=== PATIENT | male | born 1950 | race Caucasian/White ===

== ENCOUNTER 2016-12-12 14:09 | Outpatient (CLI) | payer OTHER ==
--- NOTE | 2016-12-12 18:44 | ULT ---
HEPATIC DOPPLER ULTRASOUND: 12/12/16 COMPARISON: None. HISTORY: Elevated liver function tests. TECHNIQUE: Multiplanar francisco scale sonographic imaging of the right upper quadrant obtained. Hepatic vasculature is assessed with color flow/spectral analysis. FINDINGS: The pancreas is obscured by bowel gas. Evaluation of the left lobe of the liver is markedly limited secondary to bowel gas as well. Limited assessment of the right lobe of the liver is unremarkable. Right kidney measures 9.8 cm in craniocaudal dimension and demonstrates no stone, hydronephrosis or mass. Small echogenic foci are seen within the gallbladder lumen suggesting small gallstones. The sonograp her reports a negative White's sign. No gallbladder wall thickening or pericholecystic fluid is see n. The common bile duct measures 4 mm, within normal limits. Imaged abdominal aorta and IVC appear within normal limits. Main portal vein and right portal vein a ppear patent and demonstrate appropriate flow direction. Hepatic artery is patent as is the abdomina l aorta and IVC in the perihepatic region. The right hepatic vein is patent and demonstrates a normal waveform. The spleen measures 13.3 cm, upper limits of normal in size. Hepatic artery and vein are patent and demonstrate appropriate waveforms. The vasculature within the left lobe of the liver could not be ad equately assessed secondary to bowel gas. IMPRESSION: 1. Interrogated hepatic and splenic vasculature unremarkable. The left hepatic lobe and associa leroy vasculature cannot be imaged secondary to bowel gas. 2. No evidence for biliary dilatation. 3. Cholelithiasis. POS: [facility]
== END 2016-12-12 14:10 | disposition home or self-care (01) ==
LOC: ULT 14:09
PROVIDERS: ATTEND Family Medicine
DX: R94.5 Abnormal results of liver function studies (principal); K80.20 Calculus of gallbladder without cholecystitis without obstruction
CPT/HCPCS: 76705

== ENCOUNTER 2019-03-08 12:53 | Emergency (ER) | payer OTHER ==
[2019-03-08 14:12] LABS: #Eosinphils 0.1 thou/uL (0.0-0.7); #Lymphocytes 1.7 thou/uL (1.20-3.40); #Monocytes 0.6 thou/uL (0.11-0.59); #Neutrophils 2.9 thou/uL (1.40-6.50); %Basophils 0.5 % (0.0-1.0); %Eosinophils 2.6 % (0.0-10.0); %Lymphocytes 30.8 % (21.0-51.0); %Neutrophils 54.1 % (42.0-75.0); Hemoglobin 14.3 g/dL (14.0-18.0); Mean Corpuscular HGB CONC 33.7 g/dL (32.0-36.0); Mean Corpuscular Hemoglobin 32.5 pg (27.0-31.0); Mean Corpuscular Volume 96.6 fL (78.0-98.0); Mean Platelet Volume 8.2 fL (7.4-10.4); Platelet Count 78 thou/uL (130-400); RBC Distribution Width 12.2 % (11.5-14.5); White Blood Cell (WBC) Count 5.4 thou/uL (4.8-10.8)
--- NOTE | 2019-03-08 14:34 | RAD ---
EXAM: XR Chest 1 View Portable PROVIDED CLINICAL HISTORY: Cough COMPARISON: 09/21/2015 FINDINGS: The lungs are hypoinflated, limiting evaluation. Cardiac silhouette appears enlarged, which may be le ast partially on the basis of portable technique and lung hypoinflation. Bibasilar patchy parenchymal opacities are redemonstrated, nonspecific but presumably reflecting passive atelectasis g iven lung hypoinflation. There is no evidence for pneumothorax. Blunting of left costophrenic angle could reflect left pleural fluid. IMPRESSION: Hypoinflated exam.
[2019-03-08 14:38] LABS: Bilirubin Negative (Negative); Blood, Urine Negative (Negative); Clarity Clear (Clear); Glucose, Urine (Dipstick) Normal (Negative); Leukocyte Negative Leu/uL (Negative); Nitrite Negative (Negative); Protein, Urine (Dipstick) Negative (Neg-Trace); Urobilinogen Normal mg/dL (Less than 2)
[2019-03-08 14:39] LABS: ALT (SGPT) 21 U/L (8-55); AST (SGOT) 30 U/L (5-34); Albumin 3.7 g/dL (3.4-4.8); Alkaline Phosphatase 132 U/L (40-110); Anion Gap 11 mmol/L (10-20); BUN (Urea Nitrogen) 15 mg/dL (8.4-25.7); Bilirubin, Total 0.7 mg/dL (0.2-1.2); CK (CPK) 158 U/L (30-200); Calc. Creatinine Clearance 0 mL/min (70-130); Calcium 9.6 mg/dL (7.8-10.44); Carbon Dioxide 35 mmol/L (23-31); Chloride 98 mmol/L (98-107); Estimated GFR-MDRD 84; Globulin 2.9 g/dL (2.4-3.5); Glucose 159 mg/dL (80-115); Lipase 20 U/L (8-78); Potassium 4.4 mmol/L (3.5-5.1); Protein, Total 6.6 g/dL (5.8-8.1); Sodium 140 mmol/L (136-145)
== END 2019-03-08 15:24 | disposition home or self-care (01) ==
LOC: ERS 12:53
DX: E86.0 Dehydration (principal); R53.1 Weakness; E78.5 Hyperlipidemia, unspecified; J44.9 Chronic obstructive pulmonary disease, unspecified; I48.92 Unspecified atrial flutter; F32.9 Major depressive disorder, single episode, unspecified; Z79.899 Other long term (current) drug therapy
CPT/HCPCS: 36415; 71045; 80053; 81003; 82550; 83605; 83690; 83880; 84484; 85025; 87040; 87804; 93005; 96360

== ENCOUNTER 2019-03-18 09:34 | Inpatient (IN) | payer OTHER ==
--- NOTE | 2019-03-18 10:21 | RAD ---
Portable chest: HISTORY: Shortness of breath COMPARISON: 03/08/2019 FINDINGS:Cardiomegaly. Mild vascular engorgement. Bibasilar infiltrates and atelectasis with evidence of small bilateral effusions. No significant change from prior exam. IMPRESSION:Bibasilar infiltrates and atelectasis with evidence of small effusions. Not significantly changed.
[2019-03-18 10:25] LABS: #Eosinphils 0.1 thou/uL (0.0-0.7); #Lymphocytes 1.7 thou/uL (1.20-3.40); #Monocytes 0.7 thou/uL (0.11-0.59); #Neutrophils 3.9 thou/uL (1.40-6.50); %Basophils 0.4 % (0.0-1.0); %Eosinophils 1.5 % (0.0-10.0); %Lymphocytes 26.7 % (21.0-51.0); %Monocytes 10.4 % (0.0-10.0); Hemoglobin 14.7 g/dL (14.0-18.0); Mean Corpuscular HGB CONC 31.8 g/dL (32.0-36.0); Mean Corpuscular Volume 97.3 fL (78.0-98.0); Platelet Count 92 thou/uL (130-400); RBC Distribution Width 12.7 % (11.5-14.5); Red Blood Cell (RBC) Count 4.75 mill/uL (4.70-6.10); White Blood Cell (WBC) Count 6.3 thou/uL (4.8-10.8)
[2019-03-18 10:42] LABS: ALT (SGPT) 23 U/L (8-55); AST (SGOT) 31 U/L (5-34); Alkaline Phosphatase 138 U/L (40-110); Anion Gap 8 mmol/L (10-20); BUN (Urea Nitrogen) 12 mg/dL (8.4-25.7); Bilirubin, Total 0.9 mg/dL (0.2-1.2); Calc. Creatinine Clearance 0 mL/min (70-130); Carbon Dioxide 37 mmol/L (23-31); Chloride 95 mmol/L (98-107); Estimated GFR-MDRD Greater than 90; Globulin 3.1 g/dL (2.4-3.5); Glucose 153 mg/dL (80-115); Potassium 4.4 mmol/L (3.5-5.1); Protein, Total 7.1 g/dL (5.8-8.1); Sodium 136 mmol/L (136-145)
[2019-03-18 13:47] LABS: Bilirubin Negative (Negative); Blood, Urine Negative (Negative); Clarity Clear (Clear); Glucose, Urine (Dipstick) Normal (Negative); Leukocyte Negative Leu/uL (Negative); Nitrite Negative (Negative); Protein, Urine (Dipstick) Negative (Neg-Trace); Urobilinogen Normal mg/dL (Less than 2)
[2019-03-18] MEDS ORDERED: Sodium Chloride 0.9% 100 ML ONE (14:49)
[2019-03-18] MEDS ORDERED: Azithromycin 500 MG VIAL ONE (14:49)
[2019-03-18] MEDS ORDERED: cefTRIAXone\\ROCEPHIN 2 GM VIAL ONE (14:49)
--- NOTE | 2019-03-18 20:28 | CT ---
CT OF BRAIN PERFORMED WITHOUT CONTRAST ENHANCEMENT: 03/18/19 HISTORY: Fall with head trauma. Ventricular and cisternal system shows fairly age appropriate change. There is no signs of intracereb ral hemorrhage or extra-axial fluid collections. Mastoid air cells and visualized sinuses are clear. IMPRESSION: No acute intracranial abnormalities. POS: [facility]
--- NOTE | 2019-03-18 20:47 | CT ---
CT OF THE CERVICAL SPINE PERFORMED WITHOUT CONTRAST ENHANCEMENT: 03/18/19 HISTORY: Fall with neck injury. Bones appear somewhat demineralized. The vertebral bodies maintain normal height. There is marked dis c narrowing at C5-6. There is prominent anterior osteophytic change at C4-5 and C6-7. The facets are in normal alignment. There is no evidence of canal stenosis. No significant foraminal narrowing. No C T evidence for fracture. Partially visualized parenchymal change in the right upper lobe may be related to scarring. An infilt rative process is not excluded. IMPRESSION: No CT evidence of fracture of the cervical spine. POS: [facility]
--- NOTE | 2019-03-18 21:04 | RAD ---
PORTABLE CHEST: 03/18/19 HISTORY: Drop in O2. COMPARISON: Earlier exam done today. Heart size appears slightly enlarged. There is worsening atelectatic changes in the right lung base. Atelectatic changes in the left base also might be slightly increased. IMPRESSION: Slightly worsening bibasilar atelectatic lung change. POS: [facility]
[2019-03-18] MEDS ORDERED: Rocuronium Bromide 10 MG/ML (10ML VIAL) ONE (23:58)
[2019-03-19] MEDS ORDERED: fentaNYL Citrate/PF 2,000 MCG in Sodium Chloride 0.9% 60 ML IV SCH (00:17)
[2019-03-19 00:55] LABS: Actual Bicarbonate (HCO3a) 29.4 mEq/L (22-28); Analyzer IN Cardio ER; Base Excess (BEa) 3.8 mEq/L (-2.0 to +3.0); CO2 Tension 48.3 mmHg (35.0-45.0); Calcium, Ionized 1.15 mmol/L (1.12-1.30); Carboxyhemoglobin (COHb) 1.2 gm% (0.0-3.0); Hemoglobin (Hb) 13.4 g/dL (14.0-18.0); O2 Tension (PaO2) 62.5 mmHg (> 80.0); Potassium - ABG Lab 3.83 mmol/L (3.70-5.30)
[2019-03-19] MEDS ORDERED: Senokot S 8.6-50 MG TAB PO PRN (00:57)
[2019-03-19] MEDS ORDERED: Acetaminophen 325 MG TAB PO PRN (00:57)
[2019-03-19] MEDS ORDERED: HYDROcodone/Acetaminophen 5/325 mg Tablet PO PRN (00:57)
[2019-03-19] MEDS ORDERED: Bisacodyl 10 MG SUPP PR PRN (00:57)
[2019-03-19] MEDS ORDERED: Acetaminophen 650 MG Suppository PR PRN (00:57)
[2019-03-19] MEDS ORDERED: Bisacodyl 5 MG TAB PO PRN (00:57)
--- NOTE | 2019-03-19 01:06 | PDOC.HHP ---
Hospitalist HPI - History of Present Illness Hypoxic respiratory failure History of Present Illness: Patient is a 68 year old male with PMH COPD, atrial flutter, DM who presents to ED for intermittent hypoxia x 1 week, lives at [facility], they report intermittent hypoxia x 1 week, on arrival here sats in the 70s then 90%, patient was observed in ED and [facility], however patient fell in ED room, per nusing hit head w/ scalp laceration and patient was instead paged for admission here, CT head and CT C spine performed after fall without acute findings however patient began to desaturate and placed on non-rebreather, nursing reports hypoxia and then respiratory failure and was instead intubated in the ED. CXR bibasilar infiltrates/atalectasts w/ small effusions per prelim radiology read in ED notes. He was given azithromycin and ceftriaxone. ED Course: VITAL SIGNS SunMar 18, 2019 09:36 PABLITO Fofana Kassidy BP: 148/73 Pulse: 71 Resp: 22 Temp: 97.4 (Oral) Pain: 0 O2 sat: 88 on (Room Air) Time: 03/18/2019 09:36. folic acid oral SunMar 18, 2019 11:38 PABLITO Fofana Kassidy TABLET : Strength - 1 mg : ORAL Patient Dose: 1 mg Oral once a day. cyanocobalamin (vit B-12) oral SunMar 18, 2019 11:38 PABLITO Fofana Kassidy TABLET : Strength - 1,000 mcg : ORAL Patient Dose: 1000 mcg Oral once a day. metFORMIN SunMar 18, 2019 11:39 PABLITO Fofana Kassidy tablet : Strength - 500 mg : ORAL Patient Dose: 750 mg 2 times a day. simvastatin SunMar 18, 2019 11:39 PABLITO Fofana Kassidy tablet : Strength - 80 mg : ORAL Patient Dose: once a day (at bedtime). Miralax SunMar 18, 2019 11:40 PABLITO Fofana Kassidy powder in packet : Strength - 17 gram : ORAL Patient Dose: once a day. Hospitalist ROS - Review of Systems ROS unobtainable: due to endotracheal tube Hospitalist History - Past Medical History Other Medical History: Past medical history includes cardiac history, Past medical history includes history of hyperlipidemia, currently being treated, chronic obstructive pulmonary disease, Atrial Flutter, diabetes. - Exam General - other findings: intubated Eye - other findings: fixed 2-3mm pupils, sedated ENT - other findings: bruises over front of face Neck: supple, no JVD Heart: RRR, no murmur, no gallops, no rubs Respiratory: CTAB, no wheezes, no rales, no ronchi Gastrointestinal: soft, non-tender, non-distended, normal bowel sounds, no palpable masses, no hepatomegaly, no splenomegaly, no bruit Extremities: no cyanosis, no clubbing, no edema Extremities - other findings: R foot w/ TMA. well healed. multiple skin graft wounds on both legs no infx Skin - other findings: as above Neurological - other findings: intubated and sedated, pupils small and fixed Musculoskeletal: normal tone, normal strength, no muscle wasting Hospitalist Results - Labs Result Diagrams: 03/18/19 10:07 03/18/19 10:07 Lab results: WBC 6.3 thou/uL (4.8-10.8) 03/18/19 10:07 Hgb 14.7 g/dL (14.0-18.0) 03/18/19 10:07 Hct 46.2 % (42.0-52.0) 03/18/19 10:07 MCV 97.3 fL (78.0-98.0) 03/18/19 10:07 Plt Count 92 thou/uL (130-400) L 03/18/19 10:07 Neutrophils % 61.0 % (42.0-75.0) 03/18/19 10:07 Sodium 136 mmol/L (136-145) 03/18/19 10:07 Potassium 4.4 mmol/L (3.5-5.1) 03/18/19 10:07 Chloride 95 mmol/L (98-107) L 03/18/19 10:07 Carbon Dioxide 37 mmol/L (23-31) H 03/18/19 10:07 BUN 12 mg/dL (8.4-25.7) 03/18/19 10:07 Creatinine 0.82 mg/dL (0.7-1.3) 03/18/19 10:07 Glucose 153 mg/dL (80-115) H 03/18/19 10:07 Lactic Acid 1.2 mmol/L (0.5-2.2) 03/18/19 10:07 Calcium 10.0 mg/dL (7.8-10.44) 03/18/19 10:07 Total Bilirubin 0.9 mg/dL (0.2-1.2) 03/18/19 10:07 AST 31 U/L (5-34) 03/18/19 10:07 ALT 23 U/L (8-55) 03/18/19 10:07 Alkaline Phosphatase 138 U/L (40-110) H 03/18/19 10:07 Troponin I 0.016 ng/mL (< 0.028) 03/18/19 10:07 B-Natriuretic Peptide 29.0 pg/mL (0-100) 03/18/19 10:07 Serum Total Protein 7.1 g/dL (5.8-8.1) 03/18/19 10:07 Albumin 4.0 g/dL (3.4-4.8) 03/18/19 10:07 Urine Ketones Negative mg/dL (Negative) 03/18/19 10:38 Urine Blood Negative (Negative) 03/18/19 10:38 Urine Nitrite Negative (Negative) 03/18/19 10:38 Ur Leukocyte Esterase Negative Curry/uL (Negative) 03/18/19 10:38 Additional comment: prelim XR read reviewed in ED note w/ infiltrate bilateral, effusion, atalectasis CT head and C spine reports reviewed - EKG Interpretation EKG: sinus rate [address] changes QRS 118, wide. Hospitalist H&P A/P - Plan Plan: Patient is a 68 year old male with PMH COPD, atrial flutter, DM who presents to ED for intermittent hypoxia x 1 week with infiltrates and effusion/atalectasis on lung imaging who developed hypoxic respiratory failure. # acute hypoxic respiratory failure - given off and on symptoms over the week must suspect clot and PE migration, will order a CT of the chest and empirically treat with vancomycin and zosyn, Dr Conrad of pulmonology paged, patient to go to ICU # fall, head trauma - nursing reported fixed pupils bilaterally before intubation and sedation, CT head and C spine OK, will repeat now to survey for developing bleeding, MRI and carotid US ordered # abnormal CXR - infiltrate, effusion, atalectasis concerning for pneumonia, continue vancomycin and zosyn # DM - SSI ordered 55 minutes critical care time
[2019-03-19 01:10] LABS: ALV-art Gradient 233.625 (0-20); Puncture Site LRA
[2019-03-19] MEDS ORDERED: Dextrose 50% Abboject 50 ML SYRINGE SLOW IVP PRN (01:37)
[2019-03-19] MEDS ORDERED: Dextrose 5% in Water 1,000 ML IV PRN (01:37)
[2019-03-19] MEDS ORDERED: hydrALAZINE 20 MG/ML VIAL SLOW IVP PRN (01:39)
[2019-03-19] MEDS ORDERED: Promethazine HCl 12.5 MG in Sodium Chloride 0.9% 50 ML IVPB PRN (01:39)
[2019-03-19] MEDS ORDERED: Ondansetron PF 4 MG/2 ML Vial IVP PRN (01:39)
[2019-03-19] MEDS ORDERED: Fentanyl BOLUS 250 ML IVPB PRN (02:19)
[2019-03-19] MEDS ORDERED: Propofol BOLUS 1,000 MG/100 ML VIAL IV PRN (02:19)
[2019-03-19] MEDS ORDERED: DISCONTINUE PREVIOUS NARCOTIC PAIN MEDICATIONS AND BENZODIAZEPINES FS SCH (02:19)
[2019-03-19] MEDS: Propofol 1,000 MG/100 ML VIAL IV PRN ×4 (02:50→22:16)
[2019-03-19] MEDS: Lorazepam 2 MG/ML VIAL SLOW IVP PRN (02:59)
[2019-03-19] MEDS: Piperacillin/Tazobactam 3.375 GM in Sodium Chloride 0.9% 100 ML IVPB SCH ×4 (03:03→20:36)
[2019-03-19 03:51] LABS: #Eosinphils 0.1 thou/uL (0.0-0.7); #Lymphocytes 1.1 thou/uL (1.20-3.40); #Monocytes 0.8 thou/uL (0.11-0.59); #Neutrophils 5.3 thou/uL (1.40-6.50); %Basophils 0.5 % (0.0-1.0); %Eosinophils 0.7 % (0.0-10.0); %Lymphocytes 15.4 % (21.0-51.0); %Monocytes 10.7 % (0.0-10.0); %Neutrophils 72.7 % (42.0-75.0); Hemoglobin 14.5 g/dL (14.0-18.0); Mean Corpuscular HGB CONC 31.9 g/dL (32.0-36.0); Mean Corpuscular Hemoglobin 30.6 pg (27.0-31.0); Mean Corpuscular Volume 95.9 fL (78.0-98.0); Mean Platelet Volume 8.2 fL (7.4-10.4); Platelet Count 79 thou/uL (130-400); RBC Distribution Width 12.5 % (11.5-14.5); Red Blood Cell (RBC) Count 4.76 mill/uL (4.70-6.10); White Blood Cell (WBC) Count 7.3 thou/uL (4.8-10.8)
[2019-03-19 03:53] LABS: Prothrombin Time 12.7 SEC (12.0-14.7)
[2019-03-19 04:11] LABS: Anion Gap 15 mmol/L (10-20); BUN (Urea Nitrogen) 10 mg/dL (8.4-25.7); Calc. Creatinine Clearance 133 mL/min (70-130); Calcium 9.3 mg/dL (7.8-10.44); Carbon Dioxide 30 mmol/L (23-31); Chloride 98 mmol/L (98-107); Estimated GFR-MDRD Greater than 90; Glucose 158 mg/dL (80-115); Magnesium 1.9 mg/dL (1.6-2.6); Potassium 3.9 mmol/L (3.5-5.1); Sodium 139 mmol/L (136-145)
[2019-03-19] MEDS: methylPREDNISolone Sod Succ/PF 125 MG/2 ML VIAL IVP SCH ×3 (05:38→22:15)
[2019-03-19 07:38] LABS: Actual Bicarbonate (HCO3a) 31.8 mEq/L (22-28); Base Excess (BEa) 8.4 mEq/L (-2.0 to +3.0); CO2 Tension 39.4 mmHg (35.0-45.0); Calcium, Ionized 1.15 mmol/L (1.12-1.30); Carboxyhemoglobin (COHb) 1.5 gm% (0.0-3.0); Hemoglobin (Hb) 13.1 g/dL (14.0-18.0); Potassium - ABG Lab 3.77 mmol/L (3.70-5.30); pH, Arterial 7.53 (7.35-7.45)
--- NOTE | 2019-03-19 08:03 | RAD ---
EXAM: Single view of the chest HISTORY: Endotracheal tube adjustment. Respiratory failure. COMPARISON: 03/19/2019 FINDINGS: Single view of the chest shows a normal sized cardiomediastinal silhouette. The endotrache al tube has been slightly retracted with its tip in good position between the clavicles. An NG tube is seen in the stomach. Opacity seen in the right thorax which likely represents a pleural effusion and adjacent atelectasis. The bones are unremarkable. IMPRESSION: 1. Appropriate position of lines and tubes demonstrates. 2. Right pleural effusion with adjacent atelectasis
[2019-03-19 08:19] LABS: O2 Tension (PaO2) 42.3 mmHg (> 80.0)
[2019-03-19 08:20] LABS: Puncture Site LRA
[2019-03-19] MEDS ORDERED: Enoxaparin Sodium 40 MG/0.4 ML SYRINGE SC SCH (09:00)
--- NOTE | 2019-03-19 09:05 | CT ---
PRELIMINARY REPORT/[facility]/EMERGENCY AFTER HOURS PROCEDURE: Receipt of this report by the clinical staff was confirmed with VINH CHINO MD by Emilee Sharp se on Mar 19, 2019 02:04:00 GENERAL SUPERVISOR. Addendum electronically signed by Kristyn Sharp on March 19, 2019 2:04:51 AM GENERAL SUPERVISOR EXAM: CTA Chest with Intravenous Contrast CLINICAL HISTORY: ER 7.. acute hypoxic resp failure; M68 presents to ED VIA EMS with c/o SOB. Nurshing home concerned f or cough and SOBx1 week. EMS arriveed pt was 90% on 2l of oxygen TECHNIQUE: Axial CTA images of the chest with intravenous contrast. MIP reconstructed images were created and re viewed. CONTRAST: With; ISOVUE 370, 75ml COMPARISON: None provided. FINDINGS: PULMONARY ARTERIES There is no intraluminal filling defect suspicious for PE. AORTA No thoracic aortic aneurysm or dissection. LUNGS Bilateral lower lobe mixed consolidation with atelectasis. Right upper lobe and right middle lobe pat lawrence consolidation. No pulmonary mass. PLEURAL SPACES No pleural effusion. No pneumothorax. HEART AND MEDIASTINUM Enlarged heart. Atherosclerotic coronary calcifications. No pericardial effusion. LYMPH NODES No lymphadenopathy. BONES Multilevel degenerative changes of the spine. No acute fractures or worrisome osseous lesions. CHEST WALL AND UPPER ABDOMEN Endotracheal tube terminating 2.2 cm from the rebecca. Transesophageal enteric tube is seen within the stomach. Radiopaque stones within the gallbladder. IMPRESSION: 1. No evidence of pulmonary embolism. 2. Right greater than left consolidations concerning for multifocal pneumonia with superimposed atele ctasis at the lung bases. 3. Cardiomegaly with coronary artery disease. 4. Appropriate positioning of endotracheal tube and enteric tube. 5. Cholelithiasis. ELECTRONICALLY SIGNED BY: Ben Gonzalez M.D. Mar 19, 2019 2:00:18 AM GENERAL SUPERVISOR This report is intended for review by the ordering physician only, in accordance of law. If you recei ve this report in error, please call [facility] at [phone]. FINAL REPORT EMERGENCY AFTER HOURS CTA CHEST: FINDINGS/IMPRESSION: I agree with the findings and impression given in the preliminary report per [facility] physici an. 1. No evidence of pulmonary thromboembolism. 2. Multifocal pneumonia. 3. Cholelithiasis.
--- NOTE | 2019-03-19 09:07 | CT ---
PRELIMINARY REPORT/[facility]/EMERGENCY AFTER HOURS PROCEDURE: EXAM: CT Head Without Intravenous Contrast. CLINICAL HISTORY: F/U Brain CT; fall, LAC to forehead; Increased AMS since last exam TECHNIQUE: Axial computed tomography images of the head/brain without intravenous contrast. COMPARISON: Noncontrast CT head 03/18/2019. FINDINGS: BRAIN: No acute intraparenchymal hemorrhage. No mass lesion. No CT evidence for acute territorial inf arct. No midline shift or extra-axial collection. Scattered white matter hypodensities compatible wi th chronic microvascular ischemic changes. Unchanged mineralization within the basal ganglia. VENTRICLES: No hydrocephalus. Symmetric enlargement of ventricles and sulci compatible with age-rela leroy cerebral atrophy. ORBITS: The orbits are unremarkable. SINUSES AND MASTOIDS: The paranasal sinuses and mastoid air cells are clear. SOFT TISSUES: Anterior frontal scalp soft tissue swelling evident. No radiopaque foreign body is seen . BONES: No acute skull fracture. IMPRESSION: No acute intracranial abnormality. Mild age-related cerebral atrophy and chronic microvascular ischemic change. No significant interval change from comparison exam 03/18/2019. ELECTRONICALLY SIGNED BY: Ben Gonzalez M.D. Mar 19, 2019 1:42:56 AM CHEESE FACTORY WORKER This report is intended for review by the ordering physician only, in accordance of law. If you recei ve this report in error, please call [facility] at [phone]. FINAL REPORT EMERGENCY AFTER HOURS CT BRAIN: FINDINGS/IMPRESSION: I agree with the findings and impression given in the preliminary report per [facility] physici an. No evidence of acute intracranial abnormality.
--- NOTE | 2019-03-19 09:09 | RAD ---
CHEST 1 VIEW: Date: 03/19/2019 INDICATION: History of intubation. COMPARISON: Prior exam dated 03/18/2019 at 1900 hours. FINDINGS: The patient is intubated with the ET tube tip seen approximately 2 cm from the level of the rebecca. G astric catheter is coiled in the region of the antrum. There is cardiomegaly and pulmonary vascular c ongestion. There is worsening bilateral air space edema. There has been interval placement of a pacer pad overlying the right chest wall. There are now small bilateral pleural effusions. No pneumothorax is evident. IMPRESSION: 1. Findings suspicious for worsening cardiac failure. 2. Interval intubation with gastric catheter placement. 3. No pneumothorax. POS: [facility]
[2019-03-19] MEDS: Apixaban 5 MG TAB PO SCH ×2 (09:16→20:36)
[2019-03-19] MEDS: Aspirin Chewable 81 MG TAB PO SCH (09:16)
--- NOTE | 2019-03-19 09:24 | ULT ---
EXAM: Carotid ultrasound HISTORY: Syncope with head trauma COMPARISON: None TECHNIQUE: Multiplanar grayscale and color Doppler images were obtained in a carotid ultrasound. Spec tral analysis of the Doppler waveforms were performed. FINDINGS: No significant plaque is visualized in either internal carotid artery. No significant plaque is seen in either common carotid artery. The Doppler waveforms are normal in the visualized vessels. Peak systolic velocity in the right internal carotid artery 83 cm/s. Peak systolic velocity in the right common carotid artery 96 cm/s. The right ICA/CCA ratio is 0.9. Peak systolic velocity in the left internal carotid artery 82 cm/s. Peak systolic velocity in the left common carotid artery 83 cm/s. The left ICA/CCA ratio is 1.0. Both vertebral arteries demonstrate antegrade flow without focal stenosis IMPRESSION: No evidence of hemodynamically significant stenosis.
--- NOTE | 2019-03-19 12:20 | PRG ---
DATE OF SERVICE: 03/19/2019 SUBJECTIVE: The patient is seen and examined at the bedside. He is sedated. He is intubated orally. OBJECTIVE: VITAL SIGNS: Blood pressure is 104/62, pulse is 68, respiratory rate is 20, and O2 saturation is 97%, on the ventilator. HEENT: His pupils are quite small and showed very mild reaction to light. He is orally intubated. LUNGS: Clear. HEART: S1 and S2 normal. No S3. No S4. ABDOMEN: Soft, nondistended. Bowel sounds are present. 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 NEUROLOGICAL: Postponed since he is sedated. LABORATORY DATA: Normal CBC. ABGs; pH of 7.4, pCO2 of 48.3, pO2 of 62.5, and base excess of 3.8. Normal chemistry. IMPRESSION AND PLAN: 1. Acute hypoxic respiratory failure, intubated, sedated on empiric treatment with antibiotics, vancomycin, and Zosyn. We will continue that treatment. 2. Status post head trauma. Repeat CT of the brain did not show any abnormalities. Most likely, we will discontinue MRI of the brain. 3. Diabetes mellitus on a sliding scale. We will continue Solu-Medrol IV push every 8 hours, and we will continue DuoNeb's every 4 hours. Job ID: [id number]
[2019-03-19] MEDS ORDERED: Iopamidol-370 76% 500 ML 1 ML ONE (13:27)
[2019-03-19] MEDS: Vancomycin 1.5 GRAM/300 ML BAG 1.5 GM in Premix Bag 1 BAG IVPB SCH (16:22)
[2019-03-19] MEDS: Atorvastatin Calcium 40 MG TAB PO SCH (20:36)
--- NOTE | 2019-03-19 22:08 | CON ---
DATE OF CONSULTATION: HISTORY OF PRESENT ILLNESS: Kojo Maradiaga is a 68-year-old male who is intubated in the ICU. I was consulted because of his presence in the ICU. He lives in an assisted living environment and reported that he had been hypoxemic for quite some time. He was scheduled to go to the [place], but decompensated in the emergency room, and actually fell apparently, and hit his forehead. He subsequently was intubated. He had a head CT and a CT of his spine done. He is now in the Critical Care Unit. Reviewing old records, he has never been hospitalized here. PAST MEDICAL HISTORY: Unknown. FAMILY HISTORY: Unknown. SOCIAL HISTORY: Unknown. REVIEW OF SYSTEMS: Not obtainable. PHYSICAL EXAMINATION: VITAL SIGNS: Heart rate is in the 50s, respiratory rates in the teens, oximetry is 97, and blood pressure 105/53. HEENT: Pupils are reactive. Sclerae are anicteric. NECK: Without lymphadenopathy. There is laceration between his eyes just above his eyebrows. LUNGS: Remarkable for coarse equal breath sounds. HEART: Regular rhythm. S1 and S2 are normal. ABDOMEN: Soft and nontender. EXTREMITIES: Without cyanosis. He appears to be a grafted right foot, missing all of his toes. His grafts appear to be well healed. DIAGNOSTIC STUDIES: CT pulmonary angiogram done in the emergency room showed no thromboembolic disease. He has hazy infiltrates right greater than his left base. Cardiomegaly. IMPRESSION: Respiratory failure associated with pneumonia by history appears to be going on for quite some time. We will continue mechanical ventilation. He is 68, and it is unclear why he is living in assisted living environment. This will need to be support further, his family arrives. CRITICAL CARE TIME: 30 minutes. Job ID: [id number]
[2019-03-20] MEDS: Insulin Regular 300 UNITS/3 ML VIAL SC PRN ×4 (00:22→17:38)
[2019-03-20] MEDS: Piperacillin/Tazobactam 3.375 GM in Sodium Chloride 0.9% 100 ML IVPB SCH ×4 (01:55→20:04)
[2019-03-20] MEDS: Vancomycin 1.5 GRAM/300 ML BAG 1.5 GM in Premix Bag 1 BAG IVPB SCH (02:44)
[2019-03-20] MEDS: Propofol 1,000 MG/100 ML VIAL IV PRN ×4 (03:00→18:40)
[2019-03-20] MEDS: Lorazepam 2 MG/ML VIAL SLOW IVP PRN ×2 (03:59→19:32)
[2019-03-20 04:01] LABS: #Lymphocytes 0.5 thou/uL (1.20-3.40); #Monocytes 0.2 thou/uL (0.11-0.59); #Neutrophils 2.7 thou/uL (1.40-6.50); %Eosinophils 0.4 % (0.0-10.0); %Lymphocytes 14.2 % (21.0-51.0); %Neutrophils 80.3 % (42.0-75.0); Hemoglobin 12.1 g/dL (14.0-18.0); Mean Corpuscular HGB CONC 32.9 g/dL (32.0-36.0); Mean Corpuscular Hemoglobin 31.2 pg (27.0-31.0); Mean Corpuscular Volume 94.9 fL (78.0-98.0); Mean Platelet Volume 9.1 fL (7.4-10.4); Platelet Count 66 thou/uL (130-400); RBC Distribution Width 12.6 % (11.5-14.5); Red Blood Cell (RBC) Count 3.87 mill/uL (4.70-6.10); White Blood Cell (WBC) Count 3.3 thou/uL (4.8-10.8)
[2019-03-20 04:24] LABS: Anion Gap 12 mmol/L (10-20); BUN (Urea Nitrogen) 15 mg/dL (8.4-25.7); Calc. Creatinine Clearance 95 mL/min (70-130); Calcium 8.6 mg/dL (7.8-10.44); Carbon Dioxide 27 mmol/L (23-31); Chloride 99 mmol/L (98-107); Estimated GFR-MDRD 71; Glucose 217 mg/dL (80-115); Magnesium 2.2 mg/dL (1.6-2.6); Potassium 3.4 mmol/L (3.5-5.1); Sodium 135 mmol/L (136-145)
[2019-03-20] MEDS: methylPREDNISolone Sod Succ/PF 125 MG/2 ML VIAL IVP SCH ×3 (05:32→22:25)
[2019-03-20] MEDS: Aspirin Chewable 81 MG TAB PO SCH (08:59)
[2019-03-20] MEDS: Pantoprazole 40 MG VIAL IVP SCH (08:59)
[2019-03-20] MEDS: Apixaban 5 MG TAB PO SCH ×2 (08:59→21:12)
--- NOTE | 2019-03-20 12:38 | PRG ---
DATE OF SERVICE: 03/20/2019 SUBJECTIVE: The patient is seen and examined at the bedside. He is still intubated and sedated. His urine output is decreased at 935 mL for the last 24 hours, intake was 1696 and he is orally intubated. OBJECTIVE: LUNGS: Breath sounds diminished at both bases. HEART: S1, S2 normal. No S3. No S4. ABDOMEN: Soft, nondistended. Bowel sounds present, sluggish. EXTREMITIES: No clubbing, cyanosis, or edema. NEUROLOGICAL: Postponed, since he is intubated and sedated. LABORATORY DATA: White count of 3.3, hemoglobin 12.1, platelet count 66,000, sodium of 135, potassium 3.4, chloride 99, CO2 of 27, BUN 15, creatinine 1.05. Glycemia is ranging from 99 to 210. Calcium 8.6, magnesium 2.2. IMPRESSION: 1. Acute hypoxic respiratory failure, intubated and sedated, on vancomycin and Zosyn. Blood cultures negative. We are going to stop vancomycin, continue Zosyn, status post head trauma and two CTs of the brain negative. 2. Diabetes mellitus, on sliding scale, on Solu-Medrol. 3. Leukopenia and thrombocytopenia. I suspect liver cirrhosis because going back to 2016, he had multiple blood testings, which showed pancytopenia. PLAN: We are going to start him on 100 mL of normal saline with 20 mEq of KCl in each liter since his urine output is low. His creatinine is still holding up in good range. We will stop his vancomycin. We will start his folic acid and his vitamin B12 and he will remain intubated and sedated per Dr. Conrad's recommendation and we will continue his IV steroids. Job ID: [id number]
[2019-03-20 12:39] LABS: Hemoglobin 11.9 g/dL (14.0-18.0)
[2019-03-20] MEDS: NS 0.9% w/ 20 MEQ KCL 1,000 ML/1,000 ML BAG IV SCH (15:12)
[2019-03-20] MEDS ORDERED: Fentanyl 100 MCG/2 ML VIAL ONE (15:59)
--- NOTE | 2019-03-20 16:47 | PRG ---
DATE OF SERVICE: 03/20/2019 SUBJECTIVE: Kojo Maradiaga is clinically unchanged. OBJECTIVE: VITAL SIGNS: Stable. Heart rate is in the 70s, respiratory rate is per mechanical ventilation, blood pressure 114/69. Intake and outputs, positive 761. LUNGS: Remarkable for coarse breath sounds on the right. Left lung is clear. HEART: Regular rhythm. No S3. ABDOMEN: Soft and nontender. EXTREMITIES: Without edema. LABORATORY DATA: White count 3.3, hemoglobin 12.1, platelets 66,000. Sodium 135, potassium 3.4, chloride 99, bicarb 27, BUN 15, and creatinine 1.05. No blood gas was done today. ASSESSMENT AND PLAN: He has had no chest x-ray today. Ordered daily blood gases and chest x-rays. Pneumonia with respiratory failure, currently not weanable. We will reassess him on a daily basis. There has been no family at bedside. Job ID: [id number]
[2019-03-20] MEDS ORDERED: Diltiazem HCl 125 MG, Admixture Fee 1 EACH in Sodium Chloride 0.9% 100 ML IVPB SCH (20:30)
[2019-03-20] MEDS: Atorvastatin Calcium 40 MG TAB PO SCH (21:12)
[2019-03-20] MEDS: Polyethylene Glycol 3350 17 GM Packet PO SCH (21:13)
[2019-03-20] MEDS: Bacteriostatic Water 30 ML VIAL FS PRN (22:26)
[2019-03-21] MEDS: Propofol 1,000 MG/100 ML VIAL IV PRN ×3 (00:21→10:47)
[2019-03-21] MEDS: Insulin Regular 300 UNITS/3 ML VIAL SC PRN ×4 (00:22→18:01)
[2019-03-21] MEDS: NS 0.9% w/ 20 MEQ KCL 1,000 ML/1,000 ML BAG IV SCH ×3 (01:43→10:42)
[2019-03-21] MEDS: Piperacillin/Tazobactam 3.375 GM in Sodium Chloride 0.9% 100 ML IVPB SCH ×4 (01:47→19:59)
[2019-03-21 03:50] LABS: #Lymphocytes 0.5 thou/uL (1.20-3.40); #Monocytes 0.2 thou/uL (0.11-0.59); #Neutrophils 2.8 thou/uL (1.40-6.50); %Eosinophils 0.2 % (0.0-10.0); %Lymphocytes 12.8 % (21.0-51.0); %Monocytes 6.4 % (0.0-10.0); %Neutrophils 80.6 % (42.0-75.0); Hemoglobin 11.8 g/dL (14.0-18.0); Mean Corpuscular HGB CONC 32.1 g/dL (32.0-36.0); Mean Corpuscular Hemoglobin 30.5 pg (27.0-31.0); Mean Corpuscular Volume 94.9 fL (78.0-98.0); Mean Platelet Volume 8.4 fL (7.4-10.4); Platelet Count 72 thou/uL (130-400); RBC Distribution Width 12.7 % (11.5-14.5); Red Blood Cell (RBC) Count 3.86 mill/uL (4.70-6.10); White Blood Cell (WBC) Count 3.5 thou/uL (4.8-10.8)
[2019-03-21 03:55] LABS: Anion Gap 13 mmol/L (10-20); BUN (Urea Nitrogen) 16 mg/dL (8.4-25.7); Calc. Creatinine Clearance 114 mL/min (70-130); Calcium 8.5 mg/dL (7.8-10.44); Carbon Dioxide 24 mmol/L (23-31); Chloride 102 mmol/L (98-107); Estimated GFR-MDRD 88; Glucose 240 mg/dL (80-115); Potassium 3.4 mmol/L (3.5-5.1); Sodium 136 mmol/L (136-145)
[2019-03-21] MEDS: Bacteriostatic Water 30 ML VIAL FS PRN ×2 (05:52→22:25)
[2019-03-21] MEDS: methylPREDNISolone Sod Succ/PF 125 MG/2 ML VIAL IVP SCH ×3 (05:52→22:25)
--- NOTE | 2019-03-21 07:48 | RAD ---
Portable frontal chest radiograph: 03/21/2019 COMPARISON: 03/19/2019 HISTORY: Ventilated patient FINDINGS: Stable endotracheal tube and nasogastric tube. No pneumothorax evident. Heart and mediastin al contours are stable. Bilateral lower lobe airspace disease/consolidation with probable small bilateral pleural effusions again noted. IMPRESSION: Dense opacity in the lung bases suggests combination of nonspecific airspace disease/cons olidation and pleural fluid.
[2019-03-21] MEDS: Polyethylene Glycol 3350 17 GM Packet PO SCH ×2 (08:14→20:27)
[2019-03-21] MEDS: Aspirin Chewable 81 MG TAB PO SCH (08:14)
[2019-03-21] MEDS: Folic Acid 1 MG TAB PO SCH (08:14)
[2019-03-21] MEDS: Apixaban 5 MG TAB PO SCH ×2 (08:14→20:27)
[2019-03-21] MEDS: Pantoprazole 40 MG VIAL IVP SCH (08:15)
[2019-03-21] MEDS ORDERED: Non-Formulary Item 1 EACH (Cyanocobalamin (Vitamin B-12) [Vitamin B-12] 100 MCG) PO SCH (09:00)
[2019-03-21] MEDS ORDERED: Dextrose 50% Abboject 50 ML SYRINGE SLOW IVP PRN (09:34)
[2019-03-21] MEDS ORDERED: Dextrose 5% in Water 1,000 ML IV PRN (09:34)
[2019-03-21] MEDS ORDERED: Potassium Chloride 20 MEQ TAB PO SCH (09:45)
--- NOTE | 2019-03-21 09:54 | PRG ---
DATE OF SERVICE: 03/21/2019 SUBJECTIVE: The patient is seen and examined at the bedside. He is sedated and intubated on mechanical ventilation. He got agitated when his sedation was turned off and he went to fast heart beat and he was started on Cardizem by Dr. Miller. Now, he is back to normal sinus rhythm and the Cardizem was turned off. OBJECTIVE: VITAL SIGNS: Blood pressure is 108/57, pulse is 89, respiratory rate is 14, and O2 saturation is 98%. GENERAL: He is orally intubated. HEENT: Pupils midsize. Sclerae nonicteric. Conjunctivae pinkish. LUNGS: Breath sounds diminished at both bases. HEART: S1 and S2 normal. No S3. No S4. ABDOMEN: Soft and nondistended. EXTREMITIES: No clubbing, cyanosis, or edema. NEURO: Postponed, since he is sedated. LABORATORY DATA: Labs showed white count of 3.5, hemoglobin 11.8, hematocrit 36.7, and platelet count is 72,000. Sodium of 136, potassium 3.4, chloride 102, CO2 of 24, BUN 16, creatinine 0.87, glycemia is ranging from 206 to 223, and magnesium 2.0. IMAGING DATA: Chest x-ray done this morning showed bilateral lower lobe airspace disease/consolidation with probable small bilateral pleural effusions. IMPRESSION AND PLAN: 1. Acute hypoxic respiratory failure, intubated and sedated. 2. Diabetes mellitus, on sliding scale. 3. Pneumonia bilateral. 4. Cardiac arrhythmia after the sedation was turned off. The patient is going to see numerical analysis group manager. His Cardizem, which was started and used was tapered off. 5. Leukopenia and thrombocytopenia. I suspect liver cirrhosis. We will get [facility] of [facility], where he lives and get more medical history and his urine output slightly better up to 1030 for the last 24 hours, since he started on IV fluids. We will manage his hyperglycemia. Continue Zosyn and continue his apixaban. We will give him dose of potassium since his potassium is on the lower side. Job ID: [id number]
[2019-03-21] MEDS: Lorazepam 2 MG/ML VIAL SLOW IVP PRN ×2 (10:41→23:31)
--- NOTE | 2019-03-21 11:29 | PRG ---
DATE OF SERVICE: 03/21/2019 SUBJECTIVE: Mr. Maradiaga will open his eyes, but does not reliably follow commands during the holiday. He gets a little agitated. We will try to transition him to Precedex, but I certainly do not feel he is weanable. OBJECTIVE: VITAL SIGNS: Heart rate is in the 50s, blood pressure is 90/46, respiratory rates in the teens. LUNGS: Remarkable for rhonchi on the right. HEART: Regular rhythm. ABDOMEN: Soft. EXTREMITIES: Without asymmetry or edema. His lower extremity graft sites are healed. LABORATORY DATA: White count 3.5, hemoglobin 11.8, and platelets 72,000. Electrolytes are unremarkable. IMPRESSION: Pneumonia with respiratory failure, likely aspiration mediated. It is still not clear to me why he was residing in a [facility] and/or how functional he was prior to this. 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 He had transient tachycardia that is not clearly atrial fibrillation last night. This resolved with Cardizem, so this has been weaned off. Other problems include diabetes, tachyarrhythmias, narrow complex last night, neutropenia, and thrombocytopenia. We will continue to follow the other physicians caring for him. Job ID: [id number]
[2019-03-21] MEDS: Atorvastatin Calcium 40 MG TAB PO SCH (20:27)
[2019-03-22] MEDS: Insulin Regular 300 UNITS/3 ML VIAL SC PRN ×5 (00:13→23:44)
[2019-03-22] MEDS: Piperacillin/Tazobactam 3.375 GM in Sodium Chloride 0.9% 100 ML IVPB SCH ×4 (02:24→20:31)
[2019-03-22] MEDS: NS 0.9% w/ 20 MEQ KCL 1,000 ML/1,000 ML BAG IV SCH (02:24)
[2019-03-22] MEDS: Propofol 1,000 MG/100 ML VIAL IV PRN ×3 (06:53→23:37)
[2019-03-22] MEDS: Bacteriostatic Water 30 ML VIAL FS PRN (06:53)
[2019-03-22] MEDS: methylPREDNISolone Sod Succ/PF 125 MG/2 ML VIAL IVP SCH (06:53)
--- NOTE | 2019-03-22 08:38 | RAD ---
PORTABLE CHEST ONE VIEW: HISTORY: Respiratory insufficiency. FINDINGS: Life support tubes in place and stable. Bilateral poor inspiratory effort with vascular congestion an d some perihilar interstitial changes and probably small pleural effusions. IMPRESSION: Stable chest with vascular congestion and increased markings and poor inspiration. Continue short-term followup. POS: JESSY
[2019-03-22] MEDS: Apixaban 5 MG TAB PO SCH (10:01)
[2019-03-22] MEDS: Polyethylene Glycol 3350 17 GM Packet PO SCH ×2 (10:01→20:32)
[2019-03-22] MEDS: Folic Acid 1 MG TAB PO SCH (10:01)
[2019-03-22] MEDS: Aspirin Chewable 81 MG TAB PO SCH (10:02)
[2019-03-22] MEDS: Pantoprazole 40 MG VIAL IVP SCH (10:02)
[2019-03-22] MEDS ORDERED: NS 0.9% w/ 20 MEQ KCL 1,000 ML/1,000 ML BAG IV SCH (11:05)
--- NOTE | 2019-03-22 11:14 | PRG ---
DATE OF SERVICE: 03/22/2019 SERVICE: Pulmonary Medicine. INTERVAL HISTORY: The patient is doing fine from respiratory standpoint. Oxygen requirements remain a little elevated. He cannot provide any additional elements of the history. With a sedation holiday, he moved everything, and became a little agitated. As such, this was restarted. There has been no interval events overnight. PHYSICAL EXAMINATION: VITAL SIGNS: Afebrile, pulse 53, blood pressure 102/50, respirations 20, saturation 95%, currently on 40% FiO2 and a PEEP of 5. GENERAL: The patient is intubated and sedated. HEENT: Normocephalic and atraumatic. Sclerae white. Conjunctivae pink. Oral mucosa is moist without lesions. LUNGS: Good air entry bilaterally. There is no prolonged expiratory phase or wheezing present. Minimal crackles are present in the dependent regions. HEART: Normal rate. Regular. ABDOMEN: Soft, nontender, and nondistended. Bowel sounds are positive. MUSCULOSKELETAL: No cyanosis or clubbing. There is diffuse 2+ pitting throughout. NEUROLOGIC: Grossly nonfocal. LABORATORY DATA: WBC 3.5, hemoglobin 11.8, platelets 72,000. INR 1.0. PH 7.53, pCO2 of 40, PO2 of 42. Magnesium 1.9. His potassium is 3.4 at last check. Urinalysis is unremarkable. IMAGING: Chest x-ray demonstrates endotracheal tube is in good position. Very low lung volumes. Bilateral pleural effusions are present and are causing a veil like infiltrate throughout bilateral lung davey. Cardiomegaly is noted but likely accentuated by poor inspiratory effort. There is an enteric catheter coursing midline below the level of the diaphragm. ASSESSMENT: 1. Acute hypoxic respiratory failure. 2. Community-acquired pneumonia secondary to overt aspiration event. 3. Pancytopenia. DISCUSSION AND PLAN: I will KVO his IV fluids and introduce a dose of Lasix today. This will be continued daily. I will repeat laboratories tomorrow morning including basic metabolic profile, magnesium, phosphorus, and vitamin B12 level. At this point, he is not ready for weaning. A little bit of ventilatory support would be cautiously taken away from the patient. CRITICAL CARE TIME: 30 minutes. Job ID: [id number]
[2019-03-22] MEDS ORDERED: Furosemide 40 MG/4 ML VIAL SLOW IVP SCH (11:15)
[2019-03-22 11:50] LABS: Anion Gap 13 mmol/L (10-20); BUN (Urea Nitrogen) 17 mg/dL (8.4-25.7); Calc. Creatinine Clearance 119 mL/min (70-130); Calcium 8.4 mg/dL (7.8-10.44); Carbon Dioxide 25 mmol/L (23-31); Chloride 105 mmol/L (98-107); Estimated GFR-MDRD 88; Glucose 218 mg/dL (80-115); Potassium 4.5 mmol/L (3.5-5.1)
[2019-03-22 11:52] LABS: Sodium 138 mmol/L (136-145)
--- NOTE | 2019-03-22 14:12 | PRG ---
DATE OF SERVICE: 03/22/2019 SUBJECTIVE: The patient is seen and examined at the bedside. He is still intubated and sedated. The family presented to the unit today and we had a long discussion about the patient's condition and his progress. OBJECTIVE: VITAL SIGNS: Blood pressure is 93/48, respiratory rate is 22, O2 saturation is 95% on the ventilator. HEENT: His pupils are midsize and sluggishly responding to light. He is orally intubated. LUNGS: Breath sounds somewhat diminished at both bases with few crackles at both bases bilaterally. HEART: S1, S2 normal. No S3. No S4. ABDOMEN: Soft, nondistended. EXTREMITIES: No clubbing, cyanosis, or edema. Right foot status post partial amputation, done remotely. NEUROLOGIC: Examination postponed since he is sedated. LABORATORY DATA: Labs showed electrolytes within normal limits. Normal kidney function. Glycemia is ranging from 210-262. Calcium within normal limits. Chest x-ray showed stable chest with vascular congestion and increased marking and poor inspiration. IMPRESSION: 1. Acute hypoxic respiratory failure, un-weanable at this point. We will continue mechanical ventilation and sedation. 2. Diabetes mellitus, on sliding scale. Steroids IV were stopped by Dr. Hairston. This should improve the glycemia. 3. Bilateral pneumonia. 4. Cardiac arrhythmia. 5. Pancytopenia. PLAN: The patient will have BNP checked and echocardiogram. He showed increased interstitial markings on his chest x-ray. He was given a dose of Lasix by Dr. Hairston at this morning. We will continue his antibiotic for pneumonia. We will stop his apixaban since his hemoglobin is gradually dropping down, but we do not have any evidence that he is losing any blood. Most likely, he was dehydrated, and with IV fluids, his hemoglobin is more diluted now. We will continue mechanical ventilation and the family is going to get more information about his past and whether he has a history of liver cirrhosis. Going back to 2016, he had pancytopenia. I suspect that he has liver cirrhosis which was undiagnosed. Apparently, he used to drink and he is [facility]. Job ID: [id number]
[2019-03-22 14:46] LABS: #Lymphocytes 0.4 thou/uL (1.20-3.40); #Monocytes 0.2 thou/uL (0.11-0.59); #Neutrophils 2.7 thou/uL (1.40-6.50); %Monocytes 6.6 % (0.0-10.0); %Neutrophils 82.4 % (42.0-75.0); Hemoglobin 12.4 g/dL (14.0-18.0); Mean Corpuscular HGB CONC 32.1 g/dL (32.0-36.0); Mean Corpuscular Hemoglobin 30.9 pg (27.0-31.0); Mean Platelet Volume 8.6 fL (7.4-10.4); Platelet Count 86 thou/uL (130-400); RBC Distribution Width 12.8 % (11.5-14.5); Red Blood Cell (RBC) Count 4.01 mill/uL (4.70-6.10); White Blood Cell (WBC) Count 3.3 thou/uL (4.8-10.8)
--- NOTE | 2019-03-22 17:17 | ULT ---
RIGHT UPPER QUADRANT ULTRASOUND CLINICAL HISTORY: Right upper quadrant pain. COMPARISON: CTA of the chest dated 2019 FINDINGS: Patient's body habitus and the patient being intubated limiting image detail and quality of the study Liver:Bowel gas heavily obscures the liver parenchyma Intrahepatic bile ducts: No intrahepatic or extrahepatic biliary dilation.; Common bile duct: 3.4 mm. Gallbladder: There are layered stones within the gallbladder. The gallbladder wall is mildly thickene d measuring 3.5 mm. No pericholecystic fluid is identified. There is no report of the sonographic White's sign; however, the patient is intubated. White's sign:None Main portal vein:Patent with hepatopedal flow. Pancreas:Obscured Right kidney: Right kidney measures 10.5 x 4.9 x 4.3 cm. No focal renal lesion or hydronephrosis. Additional findings: None. IMPRESSION: Cholelithiasis with mild gallbladder wall thickening. Findings are critical by ultrasound for acute c holecystitis. If clinically indicated a HIDA scan may be helpful. Some limitations examination due to the patient's body habitus.
[2019-03-22] MEDS: Atorvastatin Calcium 40 MG TAB PO SCH (20:32)
[2019-03-23] MEDS: Piperacillin/Tazobactam 3.375 GM in Sodium Chloride 0.9% 100 ML IVPB SCH ×4 (01:51→20:03)
[2019-03-23 04:13] LABS: #Lymphocytes 1.1 thou/uL (1.20-3.40); #Monocytes 0.6 thou/uL (0.11-0.59); #Neutrophils 2.5 thou/uL (1.40-6.50); %Basophils 0.3 % (0.0-1.0); %Eosinophils 0.1 % (0.0-10.0); %Lymphocytes 25.7 % (21.0-51.0); %Monocytes 14.4 % (0.0-10.0); %Neutrophils 59.6 % (42.0-75.0); Hemoglobin 11.9 g/dL (14.0-18.0); Mean Corpuscular HGB CONC 31.2 g/dL (32.0-36.0); Mean Corpuscular Hemoglobin 29.7 pg (27.0-31.0); Mean Corpuscular Volume 95.3 fL (78.0-98.0); Mean Platelet Volume 8.3 fL (7.4-10.4); Platelet Count 72 thou/uL (130-400); RBC Distribution Width 12.6 % (11.5-14.5); Red Blood Cell (RBC) Count 4.01 mill/uL (4.70-6.10); White Blood Cell (WBC) Count 4.2 thou/uL (4.8-10.8)
[2019-03-23 04:14] LABS: Phosphorus 2.7 mg/dL (2.3-4.7)
[2019-03-23 04:21] LABS: Anion Gap 13 mmol/L (10-20); BUN (Urea Nitrogen) 25 mg/dL (8.4-25.7); Calc. Creatinine Clearance 100 mL/min (70-130); Calcium 8.8 mg/dL (7.8-10.44); Carbon Dioxide 25 mmol/L (23-31); Chloride 107 mmol/L (98-107); Estimated GFR-MDRD 71; Glucose 274 mg/dL (80-115); Magnesium 2.2 mg/dL (1.6-2.6); Potassium 3.6 mmol/L (3.5-5.1); Sodium 141 mmol/L (136-145)
[2019-03-23] MEDS: Furosemide 40 MG/4 ML VIAL SLOW IVP SCH (06:06)
[2019-03-23] MEDS: Insulin Regular 300 UNITS/3 ML VIAL SC PRN ×2 (06:06→11:36)
[2019-03-23] MEDS: Propofol 1,000 MG/100 ML VIAL IV PRN ×2 (06:12→23:22)
[2019-03-23] MEDS: Pantoprazole 40 MG VIAL IVP SCH (08:26)
[2019-03-23] MEDS: Folic Acid 1 MG TAB PO SCH (08:26)
[2019-03-23] MEDS: Sodium Chloride 0.9% (PF) 10 ML VIAL FS PRN (08:26)
[2019-03-23] MEDS: Aspirin Chewable 81 MG TAB PO SCH (08:26)
[2019-03-23] MEDS: Polyethylene Glycol 3350 17 GM Packet PO SCH ×2 (08:26→20:04)
--- NOTE | 2019-03-23 08:45 | RAD ---
PORTABLE CHEST ONE VIEW: HISTORY: Respiratory insufficiency. COMPARISON: 03/22/2019 FINDINGS: Lift support tubes remain in place. Stable vascular congestion and bilateral pleural effusions and pa tchy interstitial and alveolar perihilar opacities with cardiomegaly. IMPRESSION: Overall stable chest. Continue short-term followup. POS: JESSY
[2019-03-23] MEDS ORDERED: Dextrose 5% in Water 1,000 ML IV PRN (13:21)
[2019-03-23] MEDS ORDERED: Dextrose 50% Abboject 50 ML SYRINGE SLOW IVP PRN (13:21)
--- NOTE | 2019-03-23 13:41 | PRG ---
DATE OF SERVICE: 03/23/2019 SUBJECTIVE: The patient is seen and examined at the bedside. He is sedated. He is on 2 drips on Precedex and propofol. His blood pressure systolic is down to 84 after he received Lasix. Also, he has residuals on his feeding. OBJECTIVE: VITAL SIGNS: Blood pressure is 84/55, pulse was 67, respiratory rate , O2 saturations is 92%. HEENT: Pupils midsize, sluggish, responsive to light. Sclerae are nonicteric. Conjunctivae are pinkish. LUNGS: Breath sounds somewhat diminished at both bases. HEART: S1 and S2 normal. No S3. No S4. ABDOMEN: Soft, nondistended. Bowel sounds are very sluggish, but audible. EXTREMITIES: 1+ peripheral edema on lower and upper extremities. NEUROLOGIC: Postponed since he is sedated. LABORATORY DATA: Labs showed white count of 4.2, hemoglobin of 11.9, hematocrit 38.2, platelet count is 72,000. Normal chemistry except for glycemia, which is ranging from 248 to 347. Vitamin B12 of 1771 and folate 31.90. Magnesium 2.2. BNP from yesterday 90.3. DIAGNOSTIC STUDIES: Echocardiogram showed LVEF estimated at 50% to 55%. No any significant abnormalities. Chest x-ray done this morning, no new findings. Stable vascular congestion, bilateral pleural effusions and patchy interstitial and alveolar perihilar opacities with cardiomegaly. Ultrasound of the abdomen did not reveal any liver cirrhosis, showed some cholelithiasis with mild gallbladder wall thickening. IMPRESSION AND PLAN: 1. Acute hypoxic respiratory failure. Legal Researcher will make his assessment and make decision whether he can be extubated today. 2. Diabetes mellitus. I will change his sliding scale to moderate and start him on small dose of insulin Lantus since his glycemia is persistently high. 3. Bilateral pneumonia. 4. Cardiac arrhythmia, resolved. 5. Pancytopenia. We will do flow cytometry and get Hematology consult. It looks like he has some fluid overload issue at this point and I would agree that he needs Lasix to diurese him to euvolemia. I had a long discussion with the family and nobody is aware of him having diagnosis of liver cirrhosis where ultrasound showed possible cholecystitis, but clinically, we do not see this diagnosis as one of the problems at this point. Job ID: [id number]
--- NOTE | 2019-03-23 13:45 | PRG ---
DATE OF SERVICE: 03/23/2019 SERVICE: Pulmonary Medicine. INTERVAL HISTORY: The patient is doing really well from respiratory standpoint. Breathing comfortably. There has been no interval change to his condition other than some marginal low blood pressures this morning after he had a very robust response to the Lasix that he got. Otherwise, there has been no change to his condition. On a sedation holiday, he is waking up slowly. He is moving both lower extremities, upper extremities but demonstrates profound weakness still. PHYSICAL EXAMINATION: VITAL SIGNS: Afebrile, pulse 67, blood pressure 104/53, respirations 16, saturation 96%, currently on 33% FiO2 and a PEEP of 5. GENERAL: The patient is awake and alert. No apparent distress. LUNGS: Decent air entry. Crackles are present. No prolonged expiratory phase of wheezing appreciated. HEART: Normal rate, regular. ABDOMEN: Soft, nontender, nondistended, bowel sounds are positive. MUSCULOSKELETAL: No cyanosis or clubbing. There is 2+ pitting in the bilateral lower extremities. NEUROLOGIC: Grossly nonfocal. LABORATORY DATA: WBC 4.2, hemoglobin 11.9, platelets 72,000. INR 1.0. PH 7.53, pCO2 of 39, PO2 of 42. Creatinine 1.04, which is gently up trending. Basic metabolic profile is otherwise unremarkable except for a potassium of 3.6. Folate and B12 fall within the normal limits. Urinalysis is negative. IMAGING: Echocardiogram demonstrates normal ejection fraction with mildly dilated left atrium, and mild mitral regurgitation but otherwise, no significant abnormalities. Chest x-ray demonstrates bilateral pleural effusion, right is greater than left. There is a little bit of pulmonary vascular congestion noted. No focal consolidating lesions are identified. ASSESSMENT: 1. Acute hypoxic respiratory failure. 2. Community-acquired pneumonia secondary to overt aspiration event. 3. Pancytopenia. DISCUSSION AND PLAN: We will continue diuresing down to euvolemia. Potassium will be replaced today. We will put him on a spontaneous breathing trial. If he meets criteria on a sedation holiday, extubation will be considered. Pulmonary will continue to follow. CRITICAL CARE TIME: 30 minutes. Job ID: [id number]
[2019-03-23] MEDS: HumaLOG 300 UNITS/3 ML VIAL SC PRN (18:38)
[2019-03-23] MEDS: Atorvastatin Calcium 40 MG TAB PO SCH (20:04)
[2019-03-23] MEDS: Lorazepam 2 MG/ML VIAL SLOW IVP PRN (22:03)
--- NOTE | 2019-03-24 00:12 | EKG ---
Test Reason : Blood Pressure : / mmHG Vent. Rate : 168 BPM Atrial Rate : 166 BPM P-R Int : 000 ms QRS Dur : 130 ms QT Int : 258 ms P-R-T Axes : 000 -21 143 degrees QTc Int : 431 ms Atrial fibrillation. Wide QRS tachycardia Non-specific intra-ventricular conduction block Cannot rule out Septal infarct , age undetermined T wave abnormality, consider lateral ischemia Abnormal ECG When compared with ECG of 18-MAR-2019 09:53, (Unconfirmed) Wide QRS tachycardia has replaced Junctional rhythm Vent. rate has increased BY 99 BPM Confirmed by Clarita WILLIS ([id number]) on 03/24/2019 12:11:32 AM Referred By: CHARLEE Confirmed By:Clarita WILLIS
[2019-03-24] MEDS: Piperacillin/Tazobactam 3.375 GM in Sodium Chloride 0.9% 100 ML IVPB SCH ×4 (02:09→20:05)
[2019-03-24 04:28] LABS: #Eosinphils 0.1 thou/uL (0.0-0.7); #Lymphocytes 1.9 thou/uL (1.20-3.40); #Neutrophils 5.3 thou/uL (1.40-6.50); %Basophils 0.2 % (0.0-1.0); %Eosinophils 0.9 % (0.0-10.0); %Lymphocytes 23.1 % (21.0-51.0); %Monocytes 12.2 % (0.0-10.0); %Neutrophils 63.7 % (42.0-75.0); Hemoglobin 11.7 g/dL (14.0-18.0); Mean Corpuscular HGB CONC 31.7 g/dL (32.0-36.0); Mean Corpuscular Hemoglobin 30.1 pg (27.0-31.0); Mean Platelet Volume 8.8 fL (7.4-10.4); Platelet Count 68 thou/uL (130-400); RBC Distribution Width 12.6 % (11.5-14.5); Red Blood Cell (RBC) Count 3.87 mill/uL (4.70-6.10); White Blood Cell (WBC) Count 8.3 thou/uL (4.8-10.8)
[2019-03-24 04:35] LABS: Anion Gap 12 mmol/L (10-20); BUN (Urea Nitrogen) 24 mg/dL (8.4-25.7); Calc. Creatinine Clearance 109 mL/min (70-130); Calcium 8.6 mg/dL (7.8-10.44); Carbon Dioxide 25 mmol/L (23-31); Chloride 109 mmol/L (98-107); Estimated GFR-MDRD 79; Glucose 202 mg/dL (80-115); Potassium 3.3 mmol/L (3.5-5.1); Sodium 143 mmol/L (136-145)
[2019-03-24] MEDS: Furosemide 40 MG/4 ML VIAL SLOW IVP SCH (06:37)
[2019-03-24] MEDS: Pantoprazole 40 MG VIAL IVP SCH (08:12)
[2019-03-24] MEDS: Folic Acid 1 MG TAB PO SCH (08:12)
[2019-03-24] MEDS: Aspirin Chewable 81 MG TAB PO SCH (08:12)
[2019-03-24] MEDS: Polyethylene Glycol 3350 17 GM Packet PO SCH ×2 (08:13→20:06)
[2019-03-24] MEDS: HumaLOG 300 UNITS/3 ML VIAL SC PRN ×2 (10:47→22:50)
--- NOTE | 2019-03-24 11:29 | PDOC.HOSPP ---
- Subjective Encounter Date: 03/24/19 Encounter Time: 10:30 Subjective: Patient seen and examined. on ventilator. No overnight events - Objective Vital Signs & Weight: Vital Signs (12 hours) Temp Pulse Resp Pulse Ox 03/24/19 11:00 99.5 F 03/24/19 10:28 93 03/24/19 10:24 93 17 96 03/24/19 10:00 15 03/24/19 08:00 17 95 03/24/19 07:00 99.4 F 03/24/19 06:55 87 19 96 03/24/19 06:00 17 03/24/19 04:00 99.2 F 91 18 03/24/19 03:59 95 03/24/19 02:00 17 03/24/19 00:00 99.2 F 19 Weight Admit Weight 213 lb 6.519 oz Weight 218 lb 8 oz Most Recent Monitor Data Heart Rate from ECG 99 NIBP 139/63 NIBP BP-Mean 88 Respiration from ECG 25 SpO2 96 I&O: 03/23/19 03/24/19 03/25/19 06:59 06:59 06:59 Intake Total 2595.5 1741.8 Output Total 2830 3455 2850 Balance -234.5 -1713.2 -2850 Result Diagrams: 03/24/19 03:22 03/24/19 03:22 Additional Labs: Accuchecks 03/24/19 03/24/19 03/23/19 10:47 03:26 22:14 POC Glucose 195 H 194 H 140 H 03/23/19 18:28 POC Glucose 205 H Radiology Reviewed by me: Yes EKG Reviewed by me: Yes Hospitalist ROS - Review of Systems ROS unobtainable: due to endotracheal tube - Medication Medications: Active Medications Generic Name Dose Route Start Last Admin Trade Name Freq PRN Reason Stop Dose Admin Acetaminophen 650 mg 03/19/19 00:57 03/19/19 09:16 Tylenol AK 650 mg Q4H PRN Administration Headache/Fever/Mild Pain (1-3) Albuterol/Ipratropium 3 ml 03/19/19 02:30 03/24/19 10:24 Duoneb IPPB 3 ml [id number] ALIRIO Administration Aspirin 81 mg 03/19/19 09:00 03/24/19 08:12 Aspirin Chewable PO 81 mg DAILY ALIRIO Administration Atorvastatin Calcium 40 mg 03/19/19 21:00 03/23/19 20:04 Lipitor PO 40 mg HS ALIRIO Administration Folic Acid 1 mg 03/21/19 09:00 03/24/19 08:12 Folvite PO 1 mg DAILY ALIRIO Administration Furosemide 40 mg 03/23/19 06:00 03/24/19 06:37 Lasix SLOW IVP 40 mg 0600 ALIRIO Administration Fentanyl Citrate 2,000 mcg/ 100 mls @ 0 mls/hr 03/19/19 00:17 03/20/19 05:32 Sodium Chloride IV 04/18/19 00:17 100 mls INF ALIRIO Administration Protocol Per Protocol Piperacillin Sod/Tazobactam 100 mls @ 200 mls/hr 03/19/19 02:00 03/24/19 08: 12 Sod 3.375 gm/ Sodium Chloride IVPB 100 mls 0200,0800,1400,2000 ALIRIO Administration Dexmedetomidine HCl 400 mcg/ 100 mls @ 0 mls/hr 03/22/19 02:00 03/23/19 06:04 Sodium Chloride IVPB 100 mls INF ALIRIO Administration Per Protocol Insulin Human Lispro 0 units 03/21/19 09:34 03/24/19 10:47 Humalog SC 2 unit .MODERATE SLIDING SC PRN Administration Moderate Correctional Scale Insulin Human Lispro 0 units 03/23/19 13:21 03/23/19 18:38 Humalog SC 4 unit .MODERATE SLIDING SC PRN Administration Moderate Correctional Scale Lorazepam 2 mg 03/19/19 02:19 03/23/19 22:03 Ativan SLOW IVP 04/18/19 02:19 2 mg Q1H PRN Administration Breakthrough agitation Pantoprazole Sodium 40 mg 03/20/19 09:00 03/24/19 08:12 Protonix IVP 40 mg DAILY ALIRIO Administration Polyethylene Glycol 17 gm 03/20/19 21:00 03/24/19 08:13 Miralax PO Not Given BID ALIRIO Propofol 1,000 mg 03/19/19 02:19 03/23/19 23:22 Diprivan IV 04/18/19 02:19 1,000 mg INF PRN Administration TO ACHIEVE GOAL RASS Protocol Sodium Chloride 10 ml 03/19/19 09:00 03/24/19 08:13 Flush - Normal Saline IVF 10 ml Q12HR ALIRIO Administration Sodium Chloride 10 ml 03/20/19 07:44 03/23/19 08:26 Normal Saline Pf FS 10 ml PRN PRN Administration RECONSTITUTION Sterile Water 2 ml 03/19/19 01:49 03/22/19 06:53 Bacteriostatic Water FS 2 ml PRN PRN Administration RECONSTITUTION - Exam General Appearance: NAD, awake alert Eye: PERRL, anicteric sclera ENT - other findings: intubated Neck: supple, symmetric, no JVD Heart: RRR, no murmur, no gallops Respiratory: CTAB, no wheezes, no rales, no ronchi Gastrointestinal: soft, non-distended Extremities: no cyanosis, no clubbing Hosp A/P (1) Acute respiratory failure with hypoxia Code(s): J96.01 - ACUTE RESPIRATORY FAILURE WITH HYPOXIA Status: Acute (2) Bilateral pneumonia Code(s): J18.9 - PNEUMONIA, UNSPECIFIED ORGANISM Status: Acute Qualifiers: Pneumonia type: due to unspecified organism Lung location: unspecified part of lung Qualified Code(s): J18.9 - Pneumonia, unspecified organism (3) DM type 2 (diabetes mellitus, type 2) Status: Chronic (4) Depression Code(s): F32.9 - MAJOR DEPRESSIVE DISORDER, SINGLE EPISODE, UNSPECIFIED Status : Chronic (5) General weakness Code(s): R53.1 - WEAKNESS Status: Chronic - Plan old records reviewed/req 03/24/19 continue ventilatory support as per pulmonary continue diuresis to make him euvolemic continue empiric antibiotics, zosyn medication reviewed and continue to provide symptomatic care and supportive care
[2019-03-24] MEDS: Lorazepam 2 MG/ML VIAL SLOW IVP PRN (12:10)
--- NOTE | 2019-03-24 16:14 | PRG ---
DATE OF SERVICE: 03/24/2019 SUBJECTIVE: Mr. Maradiaga is barely arousable. I was able to get him to hold up 2 fingers of his right hand. OBJECTIVE: VITAL SIGNS: His heart rates in the 70s, respiratory rates in the 20s, oximetry is 94%, blood pressure 105/54. LUNGS: Remarkable for coarse equal breath sounds. HEART: Regular rhythm. S1 and S2 are normal. ABDOMEN: Soft. EXTREMITIES: Without asymmetry. LABORATORY DATA: White count 8.3, hemoglobin 11.7, platelets 68,000. Sodium 143, potassium 3.3, chloride 109, bicarb 25, BUN 24, creatinine 0.95. IMPRESSION: 1. Pneumonia with respiratory failure. 2. Weakness and deconditioning. Family says he has not been ambulatory for quite some time. This will factor into our decisions to wean and extubate. Hoping family will arrive in the next few days. Apparently, there is a family in [place] and a family in [place], but they have not been here as far as I am aware. Job ID: [id number]
--- NOTE | 2019-03-24 16:54 | CON ---
DATE OF CONSULTATION: REASON FOR CONSULTATION: Thrombocytopenia. HISTORY OF PRESENT ILLNESS: Mr. Maradiaga is a 68-year-old gentleman with a history of COPD, atrial fibrillation, and chronic thrombocytopenia, who presented to the emergency room with hypoxia x1 week. In the emergency room, he apparently fell and hit his head. He began to desat and was eventually intubated and admitted to the ICU. On admission, he had a white count of 5.4 with 54% neutrophils and 30% lymphocytes, his hemoglobin was normal at 14.3, and his platelet count was 78, 000. The patient has chronic pancytopenia present since at least 2015. There appears to be no prior workup for this. He did have an abdominal and pelvis CT in 2016, which suggested fatty liver. The patient has continuous treatment for his respiratory failure and pneumonia. Over the course of the hospitalization, his white count dropped from normal value of 6.3 down to a low of 3.3 and is now back up with a normal value of 8.3. He is on Zosyn for pneumonia. He is on Precedex for mild sedation. He awakes, but is not following commands at this time. PAST MEDICAL HISTORY: 1. COPD. 2. Hyperlipidemia. 3. Coronary artery disease. 4. Atrial flutter. 5. Diabetes. 6. Chronic thrombocytopenia. PAST SURGICAL HISTORY: 1. Colon polyp removal. 2. Partial right foot amputation. 3. Ablation. ALLERGIES: NO KNOWN DRUG ALLERGIES. HOME MEDICATIONS: 1. Folic acid. 2. B12. 3. Metformin. 4. Simvastatin. 5. MiraLAX. FAMILY HISTORY: Unobtainable. SOCIAL HISTORY: Lives in [facility]. REVIEW OF SYSTEMS: Unable to obtain secondary to intubation. PHYSICAL EXAMINATION: VITAL SIGNS: Temperature is 99.5, pulse is 84, respiratory rate 25, BP is 113/ 57, and he is 95% on 40% FiO2. GENERAL: This is an intubated gentleman, in no acute distress. HEENT: Normocephalic and atraumatic. CV: Regular rate and rhythm. LUNGS: Crackles anterior. ABDOMEN: Soft. EXTREMITIES: There is no clubbing or cyanosis. SKIN: No rash. HEMATOLOGIC: No petechiae or purpura. NEUROLOGIC: The patient is on Precedex for sedation. PERTINENT LABORATORY DATA AND X-RAYS: Current WBCs are 8.3, hemoglobin 11.7, hematocrit 36.8, and platelet count is 68,000. He has 63% neutrophils, 23% lymphocytes, 2% monocytes, and his ANC is 5.3. PT 12.7 and INR is 1. Sodium is 143, potassium 3.3, chloride 109, CO2 is 25, BUN is 24, creatinine 0.95, and calcium 8.6. Bilirubin is 0.9, AST is 31, ALT is 23, and alkaline phosphatase is 138. Serum total protein is 7.1, albumin 4.0, and globulin 3.1. B12 is 1771 and folate is 31. ASSESSMENT: 1. Respiratory failure. 2. Chronic thrombocytopenia. 3. Intermittent leukopenia and anemia. DISCUSSION: The patient has been thrombocytopenic since at least 2016. His counts are at his baseline. It is unknown why he has low platelet count. However, there is reference to a fatty liver on the CT scan in 2016. His white count and ANC are normal as is his differential. They likely dropped due to acute illness. He has no signs of bleeding. Further workup for his thrombocytopenia can be done once he has recovered from his acute illness. Thank you for the consult. We will monitor his CBC daily. Job ID: [id number] [facility]
[2019-03-24] MEDS: Atorvastatin Calcium 40 MG TAB PO SCH (20:05)
[2019-03-25] MEDS: Piperacillin/Tazobactam 3.375 GM in Sodium Chloride 0.9% 100 ML IVPB SCH ×4 (02:13→19:58)
[2019-03-25 04:19] LABS: Anion Gap 12 mmol/L (10-20); BUN (Urea Nitrogen) 20 mg/dL (8.4-25.7); Calc. Creatinine Clearance 118 mL/min (70-130); Calcium 8.9 mg/dL (7.8-10.44); Carbon Dioxide 28 mmol/L (23-31); Chloride 106 mmol/L (98-107); Estimated GFR-MDRD 89; Glucose 153 mg/dL (80-115); Potassium 3.9 mmol/L (3.5-5.1); Sodium 142 mmol/L (136-145)
[2019-03-25 05:00] LABS: Eosinophils 1 % (0-10); Hemoglobin 11.8 g/dL (14.0-18.0); Lymphocytes 18 % (21-51); MDiff Complete? YES; Mean Corpuscular HGB CONC 31.8 g/dL (32.0-36.0); Mean Corpuscular Hemoglobin 30.5 pg (27.0-31.0); Mean Corpuscular Volume 95.7 fL (78.0-98.0); Mean Platelet Volume 9.7 fL (7.4-10.4); Monocytes 7 % (0-10); Neutrophil 73 % (42-75); Platelet Count 54 thou/uL (130-400); Platelet Morphology Comment Appears Decreased; RBC Distribution Width 12.5 % (11.5-14.5); Reactive Lymphocytes 1 % (0-10); Red Blood Cell (RBC) Count 3.87 mill/uL (4.70-6.10)
[2019-03-25] MEDS: Furosemide 40 MG/4 ML VIAL SLOW IVP SCH (06:29)
[2019-03-25 06:55] LABS: Actual Bicarbonate (HCO3a) 29.4 mEq/L (22-28); Base Excess (BEa) 4.9 mEq/L (-2.0 to +3.0); Calcium, Ionized 1.22 mmol/L (1.12-1.30); Carboxyhemoglobin (COHb) 1.3 gm% (0.0-3.0); Hemoglobin (Hb) 11.8 g/dL (14.0-18.0); O2 Tension (PaO2) 61.3 mmHg (> 80.0); Potassium - ABG Lab 3.49 mmol/L (3.70-5.30); pH, Arterial 7.45 (7.35-7.45)
[2019-03-25 07:04] LABS: Puncture Site RRA
--- NOTE | 2019-03-25 08:33 | RAD ---
CHEST 1 VIEW: HISTORY: Respiratory insufficiency. COMPARISON: 03/23/2019. FINDINGS: NG tube and endotracheal tubes remain in place. There is minimal cardiomegaly with bilateral pleural effusions and bilateral perihilar mixed opacities, overall stable. IMPRESSION: Overall stable cardiomegaly and bilateral mostly perihilar mixed opacities and vascular congestion. POS: TPC
[2019-03-25] MEDS: Pantoprazole 40 MG VIAL IVP SCH (08:36)
[2019-03-25] MEDS: Folic Acid 1 MG TAB PO SCH (08:36)
[2019-03-25] MEDS: Aspirin Chewable 81 MG TAB PO SCH (08:36)
[2019-03-25] MEDS: Polyethylene Glycol 3350 17 GM Packet PO SCH ×2 (08:37→20:09)
[2019-03-25] MEDS: HumaLOG 300 UNITS/3 ML VIAL SC PRN ×3 (10:43→23:04)
--- NOTE | 2019-03-25 14:12 | PDOC.HOSPP ---
- Subjective Encounter Date: 03/25/19 Encounter Time: 10:00 Subjective: Patient seen and examined. No new complaints. No overnight events - Objective Vital Signs & Weight: Vital Signs (12 hours) Temp Pulse Resp BP Pulse Ox 03/25/19 12:00 13 03/25/19 10:21 65 88/47 L 03/25/19 10:17 60 12 97 03/25/19 10:00 13 03/25/19 08:00 99.1 F 12 97 03/25/19 06:31 75 132/52 L 03/25/19 06:25 77 15 97 03/25/19 06:00 18 03/25/19 04:00 99.2 F 15 03/25/19 02:41 74 97 Weight Admit Weight 213 lb 6.519 oz Weight 220 lb 1.6 oz Most Recent Monitor Data Heart Rate from ECG 65 NIBP 103/48 NIBP BP-Mean 66 Respiration from ECG 19 SpO2 95 I&O: 03/24/19 03/25/19 03/26/19 06:59 06:59 06:59 Intake Total 1741.8 1916.7 220 Output Total 3455 4880 1630 Balance -1713.2 -2963.3 -1410 Result Diagrams: 03/25/19 03:20 03/25/19 03:20 Additional Labs: Accuchecks 03/24/19 03/24/19 22:51 17:12 POC Glucose 220 H 174 H Hospitalist ROS - Review of Systems ROS unobtainable: due to endotracheal tube - Medication Medications: Active Medications Generic Name Dose Route Start Last Admin Trade Name Freq PRN Reason Stop Dose Admin Acetaminophen 650 mg 03/19/19 00:57 03/19/19 09:16 Tylenol SD 650 mg Q4H PRN Administration Headache/Fever/Mild Pain (1-3) Albuterol/Ipratropium 3 ml 03/19/19 02:30 03/25/19 10:17 Duoneb IPPB 3 ml [id number] ALIRIO Administration Aspirin 81 mg 03/19/19 09:00 03/25/19 08:36 Aspirin Chewable PO 81 mg DAILY ALIRIO Administration Atorvastatin Calcium 40 mg 03/19/19 21:00 03/24/19 20:05 Lipitor PO 40 mg HS ALIRIO Administration Folic Acid 1 mg 03/21/19 09:00 03/25/19 08:36 Folvite PO 1 mg DAILY ALIRIO Administration Furosemide 40 mg 03/23/19 06:00 03/25/19 06:29 Lasix SLOW IVP 40 mg 0600 ALIRIO Administration Fentanyl Citrate 2,000 mcg/ 100 mls @ 0 mls/hr 03/19/19 00:17 03/20/19 05:32 Sodium Chloride IV 04/18/19 00:17 100 mls INF ALIRIO Administration Protocol Per Protocol Piperacillin Sod/Tazobactam 100 mls @ 200 mls/hr 03/19/19 02:00 03/25/19 13: 54 Sod 3.375 gm/ Sodium Chloride IVPB 100 mls 0200,0800,1400,2000 ALIRIO Administration Insulin Human Lispro 0 units 03/21/19 09:34 03/25/19 10:43 Humalog SC 4 unit .MODERATE SLIDING SC PRN Administration Moderate Correctional Scale Insulin Human Lispro 0 units 03/23/19 13:21 03/23/19 18:38 Humalog SC 4 unit .MODERATE SLIDING SC PRN Administration Moderate Correctional Scale Lorazepam 2 mg 03/19/19 02:19 03/24/19 12:10 Ativan SLOW IVP 04/18/19 02:19 2 mg Q1H PRN Administration Breakthrough agitation Pantoprazole Sodium 40 mg 03/20/19 09:00 03/25/19 08:36 Protonix IVP 40 mg DAILY ALIRIO Administration Polyethylene Glycol 17 gm 03/20/19 21:00 03/25/19 08:37 Miralax PO Not Given BID ALIRIO Propofol 1,000 mg 03/19/19 02:19 03/23/19 23:22 Diprivan IV 04/18/19 02:19 1,000 mg INF PRN Administration TO ACHIEVE GOAL RASS Protocol Sodium Chloride 10 ml 03/19/19 09:00 03/25/19 08:37 Flush - Normal Saline IVF 10 ml Q12HR ALIRIO Administration Sodium Chloride 10 ml 03/20/19 07:44 03/23/19 08:26 Normal Saline Pf FS 10 ml PRN PRN Administration RECONSTITUTION Sterile Water 2 ml 03/19/19 01:49 03/22/19 06:53 Bacteriostatic Water FS 2 ml PRN PRN Administration RECONSTITUTION - Exam General Appearance: NAD, awake alert Eye: PERRL, anicteric sclera Eye - other findings: intubated ENT: normocephalic atraumatic Neck: supple, symmetric, no JVD Heart: RRR, no murmur, no gallops Respiratory: CTAB, no wheezes, no rales Gastrointestinal: soft, non-distended Extremities: no cyanosis, no clubbing, no edema Hosp A/P (1) Acute respiratory failure with hypoxia Code(s): J96.01 - ACUTE RESPIRATORY FAILURE WITH HYPOXIA Status: Acute (2) Bilateral pneumonia Code(s): J18.9 - PNEUMONIA, UNSPECIFIED ORGANISM Status: Acute Qualifiers: Pneumonia type: due to unspecified organism Lung location: unspecified part of lung Qualified Code(s): J18.9 - Pneumonia, unspecified organism (3) DM type 2 (diabetes mellitus, type 2) Status: Chronic (4) Depression Code(s): F32.9 - MAJOR DEPRESSIVE DISORDER, SINGLE EPISODE, UNSPECIFIED Status : Chronic (5) General weakness Code(s): R53.1 - WEAKNESS Status: Chronic - Plan old records reviewed/req 03/24/19 continue ventilatory support as per pulmonary continue diuresis to make him euvolemic continue empiric antibiotics, zosyn medication reviewed and continue to provide symptomatic care and supportive care 03/25/19 continue vent management as per pulmonary otherwise no new recommendation continue zosyn continue lasix
[2019-03-25] MEDS: Morphine 2 MG/ML SYRINGE SLOW IVP PRN ×2 (15:21→23:40)
[2019-03-25] MEDS: Atorvastatin Calcium 40 MG TAB PO SCH (20:08)
--- NOTE | 2019-03-25 20:26 | PRG ---
DATE OF SERVICE: 03/25/2019 SUBJECTIVE: Mr. Maradiaga is more alert today. He is actually quite interactive. OBJECTIVE: VITAL SIGNS: He is afebrile, heart rate 68, respiratory rates in the teens, oximetry is 95, blood pressure 100/46. LUNGS: Remarkable for rhonchi on the right. HEART: Regular rhythm. ABDOMEN: Soft. EXTREMITIES: Without asymmetry or edema. 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 ASSESSMENT AND PLAN: His sister showed up today and I met with her at length. I have explained to her that we have to make decisions regarding code status and also have a plan of care if we extubate him. He is getting close to a point where we can consider extubation, but question becomes that we want to reintubate him. He is completely sedentary. He is able to ambulate with a walker, but does not. He gets around in the residential via wheelchair. I have explained to her that his strength reserve is quite poor. If he requires re-intubation or require tracheostomy and family has decided they would be in his best interest and may need to talk to him and see if he would want that. We will have a family meeting to get back with us. Critical care time is 35 minutes. Job ID: [id number] [facility]
[2019-03-26] MEDS: Piperacillin/Tazobactam 3.375 GM in Sodium Chloride 0.9% 100 ML IVPB SCH ×4 (03:07→19:54)
[2019-03-26] MEDS: Morphine 2 MG/ML SYRINGE SLOW IVP PRN (03:50)
[2019-03-26 04:08] LABS: Anion Gap 14 mmol/L (10-20); BUN (Urea Nitrogen) 24 mg/dL (8.4-25.7); Calc. Creatinine Clearance 118 mL/min (70-130); Calcium 9.3 mg/dL (7.8-10.44); Carbon Dioxide 28 mmol/L (23-31); Chloride 107 mmol/L (98-107); Estimated GFR-MDRD 88; Glucose 140 mg/dL (80-115); Potassium 4.6 mmol/L (3.5-5.1); Sodium 144 mmol/L (136-145)
[2019-03-26 05:56] LABS: Band 3 % (5-11); Eosinophils 7 % (0-10); Hemoglobin 11.2 g/dL (14.0-18.0); Lymphocytes 13 % (21-51); MDiff Complete? YES; Mean Corpuscular HGB CONC 30.5 g/dL (32.0-36.0); Mean Corpuscular Hemoglobin 29.2 pg (27.0-31.0); Mean Corpuscular Volume 95.8 fL (78.0-98.0); Monocytes 5 % (0-10); Neutrophil 72 % (42-75); Platelet Count 56 thou/uL (130-400); Platelet Morphology Comment Appears Decreased; RBC Distribution Width 12.3 % (11.5-14.5); Red Blood Cell (RBC) Count 3.83 mill/uL (4.70-6.10); White Blood Cell (WBC) Count 7.4 thou/uL (4.8-10.8)
[2019-03-26] MEDS: Furosemide 40 MG/4 ML VIAL SLOW IVP SCH (06:04)
[2019-03-26 06:54] LABS: Base Excess (BEa) 10.1 mEq/L (-2.0 to +3.0); CO2 Tension 54.9 mmHg (35.0-45.0); Calcium, Ionized 1.22 mmol/L (1.12-1.30); Carboxyhemoglobin (COHb) 2.1 gm% (0.0-3.0); Hemoglobin (Hb) 11.3 g/dL (14.0-18.0); Potassium - ABG Lab 3.15 mmol/L (3.70-5.30); pH, Arterial 7.43 (7.35-7.45)
[2019-03-26 06:55] LABS: ALV-art Gradient 151.445 (0-20); Puncture Site RRA
--- NOTE | 2019-03-26 08:18 | RAD ---
SINGLE VIEW OF THE CHEST: COMPARISON: 03/25/2019. HISTORY: ICU patient with respiratory failure. FINDINGS: A single view of the chest shows a normal-size cardiomediastinal silhouette. The NG tube has been re moved. The endotracheal tube is unchanged in position. Atelectasis is seen in the right lung base. IMPRESSION: Right basilar atelectasis. POS: CET
[2019-03-26] MEDS: Pantoprazole 40 MG VIAL IVP SCH (08:30)
--- NOTE | 2019-03-26 08:57 | PRG ---
DATE OF SERVICE: 03/26/2019 SUBJECTIVE: The patient is seen and examined at the bedside. He is still intubated. He is not sedated at this point. He is somewhat agitated. He is in restraints. OBJECTIVE: VITAL SIGNS: Blood pressure is 151/75, pulse is 90, respiratory rate is 17, O2 saturation is 96%. GENERAL: The patient is orally intubated and ventilated mechanically. HEENT: His pupils are midsize and responding to light properly. Sclerae are nonicteric. LUNGS: Breath sounds diminished at both bases. HEART: S1 and S2 normal. No S3. No S4. ABDOMEN: Soft, nondistended. Bowel sounds present. EXTREMITIES: No clubbing, cyanosis, or edema. LABORATORY DATA: White count of 7.4, hemoglobin 11.2, hematocrit 36.7, platelet count is 56,000. ABGs showed pH of 7.43, pCO2 54.9, PO2 58.0, and base excess is 10.1. Chemistry is within normal limits. Glycemia is ranging from 140 to 211, calcium is 9.3. IMPRESSION: 1. Acute hypoxic respiratory failure. 2. Bilateral pneumonia. 3. Diabetes mellitus. 4. Pancytopenia, improved. 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 Conrad. He is getting close to the extubation. The family was supposed to have meeting regarding code status. For now, we will continue his Accu-Cheks, DuoNebs, O2, antibiotic which is Zosyn and PPI. Job ID: [id number]
[2019-03-26] MEDS: Aspirin Chewable 81 MG TAB PO SCH (10:08)
[2019-03-26] MEDS: Polyethylene Glycol 3350 17 GM Packet PO SCH ×2 (10:09→20:01)
[2019-03-26] MEDS: Folic Acid 1 MG TAB PO SCH (10:09)
--- NOTE | 2019-03-26 12:25 | PRG ---
DATE OF SERVICE: SUBJECTIVE: Kojo Maradiaga is still extremely weak. He will interact. He has been sedated a little bit with Precedex, but still can follow commands. OBJECTIVE: VITAL SIGNS: Heart rate in the 50s, blood pressure 129/62, respiratory rates in the teens, oximetry is 93%. His negative inspiratory force best is -13. LUNGS: Remarkable for rhonchi on the right. HEART: Regular rhythm. ABDOMEN: Soft. EXTREMITIES: Without asymmetry. LABORATORY DATA: White count 7.4, hemoglobin 11.2, platelets 56,000. Electrolytes are normal. PH 7.43, CO2 of 54, PO2 of 58. IMPRESSION: 1. Pneumonia, likely aspiration mediated. 2. Respiratory failure. At this point in time, he is too weak to successfully wean from mechanical ventilation. Apparently, the brother called who has power of health care wants to consider all the options. I think, he will pass away if we extubate him at this point. I am not sure he will survive with a tracheostomy tube. Family is in the process of discussing all this as well as code status. Critical care time 30 minutes. Job ID: [id number]
[2019-03-26] MEDS: Lorazepam 2 MG/ML VIAL SLOW IVP PRN (16:45)
[2019-03-26] MEDS: HumaLOG 300 UNITS/3 ML VIAL SC PRN ×2 (17:02→22:08)
[2019-03-26] MEDS: Atorvastatin Calcium 40 MG TAB PO SCH (20:00)
[2019-03-27] MEDS: Morphine 2 MG/ML SYRINGE SLOW IVP PRN (00:14)
[2019-03-27] MEDS: Propofol 1,000 MG/100 ML VIAL IV PRN ×2 (00:54→11:29)
[2019-03-27] MEDS: Piperacillin/Tazobactam 3.375 GM in Sodium Chloride 0.9% 100 ML IVPB SCH ×4 (01:59→21:12)
[2019-03-27 04:25] LABS: Band 1 % (5-11); Eosinophils 5 % (0-10); Hemoglobin 10.1 g/dL (14.0-18.0); Lymphocytes 14 % (21-51); MDiff Complete? YES; Mean Corpuscular HGB CONC 32.3 g/dL (32.0-36.0); Mean Corpuscular Volume 96.2 fL (78.0-98.0); Mean Platelet Volume 9.3 fL (7.4-10.4); Monocytes 10 % (0-10); Neutrophil 70 % (42-75); Platelet Count 72 thou/uL (130-400); Platelet Morphology Comment Appears Decreased; RBC Distribution Width 12.4 % (11.5-14.5); Red Blood Cell (RBC) Count 3.27 mill/uL (4.70-6.10); White Blood Cell (WBC) Count 7.3 thou/uL (4.8-10.8)
[2019-03-27 04:33] LABS: Anion Gap 12 mmol/L (10-20); BUN (Urea Nitrogen) 29 mg/dL (8.4-25.7); Calc. Creatinine Clearance 97 mL/min (70-130); Calcium 9.2 mg/dL (7.8-10.44); Carbon Dioxide 29 mmol/L (23-31); Chloride 106 mmol/L (98-107); Estimated GFR-MDRD 71; Glucose 167 mg/dL (80-115); Sodium 144 mmol/L (136-145)
[2019-03-27 04:42] LABS: Potassium 2.9 mmol/L (3.5-5.1)
[2019-03-27] MEDS: HumaLOG 300 UNITS/3 ML VIAL SC PRN ×3 (05:14→18:27)
[2019-03-27] MEDS: Furosemide 40 MG/4 ML VIAL SLOW IVP SCH (05:14)
[2019-03-27] MEDS ORDERED: Potassium Chloride 20 MEQ in Premix Bag 1 BAG IVPB SCH ×2 (06:00→18:00)
--- NOTE | 2019-03-27 08:32 | RAD ---
CHEST 1 VIEW PORTABLE: HISTORY: Respiratory insufficiency. COMPARISON: 03/26/2019. FINDINGS: Life support tubes remain in place and stable. Poor inspiration. Small bilateral pleural effusions and bilateral vascular congestion appear worse than the prior study. IMPRESSION: Cardiomegaly with some worsening vascular congestion and patchy bilateral pulmonary opacity changes a nd pleural effusions. Continue short-term followup for clearing or stability. POS: TPC
[2019-03-27] MEDS: Folic Acid 1 MG TAB PO SCH (08:37)
[2019-03-27] MEDS: Pantoprazole 40 MG VIAL IVP SCH (08:37)
[2019-03-27] MEDS: Aspirin Chewable 81 MG TAB PO SCH (08:37)
[2019-03-27] MEDS: Sodium Chloride 0.9% (PF) 10 ML VIAL FS PRN (08:38)
[2019-03-27] MEDS: Polyethylene Glycol 3350 17 GM Packet PO SCH ×2 (09:00→20:51)
--- NOTE | 2019-03-27 15:29 | PRG ---
DATE OF SERVICE: 03/27/2019 SUBJECTIVE: Mr. Maradiaga is clinically unchanged. He will awaken and follow commands. He is quite weak. OBJECTIVE: VITAL SIGNS: Heart rates in the 70s, respiratory rate , oximetry is 100% on 45%, blood pressure 104/56. LUNGS: Clear. HEART: Regular rhythm. ABDOMEN: Soft. EXTREMITIES: Unchanged. IMAGING STUDIES: Chest radiograph today suggestive of pulmonary edema. His intake and output balance was -311 today, it was -2116 yesterday. I do not feel he is a candidate for extubation. Family has decided after tracheostomy and PEG, which I think is the only way he can survive this. Weakness preclude successful weaning and clearing his secretions. LABORATORY DATA: White count today 7.3, hemoglobin 10, and platelets 72,000. Electrolytes remarkable for low potassium. Creatinine is 1.04. His coags are . IMPRESSION: 1. Pneumonia with respiratory failure. 2. Sedentary lifestyle, deconditioning. He is basically wheelchair bound, living in a custodial. If he had been an active individual at his age, he would be extubated and walking out of the hospital by now. Place consult to General surgery for tracheostomy and PEG placement. Job ID: [id number]
[2019-03-27 16:29] LABS: Potassium 3.2 mmol/L (3.5-5.1)
[2019-03-27] MEDS ORDERED: Potassium Chloride 20 MEQ/100 ML PREMIX BAG IVPB SCH (17:15)
[2019-03-27] MEDS: Atorvastatin Calcium 40 MG TAB PO SCH (20:51)
--- NOTE | 2019-03-27 21:19 | PDOC.HOSPP ---
- Subjective Encounter Date: 03/27/19 Encounter Time: 10:00 Subjective: Patient seen and examined for Resp failure. On Vent. No new complaints. No overnight events - Objective Vital Signs & Weight: Vital Signs (12 hours) Temp Pulse Resp BP Pulse Ox 03/27/19 18:49 52 L 105/54 L 03/27/19 18:00 10 L 03/27/19 16:00 98.9 F 13 03/27/19 15:11 67 03/27/19 14:14 66 13 100 03/27/19 14:00 14 03/27/19 13:24 70 03/27/19 12:00 99.8 F H 15 03/27/19 10:44 77 03/27/19 10:00 16 Weight Admit Weight 213 lb 6.519 oz Weight 201 lb 0.985 oz Most Recent Monitor Data Heart Rate from ECG 57 NIBP 121/63 NIBP BP-Mean 82 Respiration from ECG 20 SpO2 98 I&O: 03/26/19 03/27/19 03/28/19 06:59 06:59 06:59 Intake Total 861 2863.4 1042 Output Total 2977 3055 1260 Balance -2116 -191.6 -218 Result Diagrams: 03/27/19 03:31 03/27/19 16:02 Additional Labs: Accuchecks 03/27/19 03/27/19 03/27/19 18:27 13:42 05:11 POC Glucose 237 H 197 H 185 H 03/26/19 22:10 POC Glucose 213 H Radiology Reviewed by me: Yes (CXR - no new changes) EKG Reviewed by me: Yes (Tele SR) Hospitalist ROS - Review of Systems ROS unobtainable: due to endotracheal tube - Medication Medications: Active Medications Generic Name Dose Route Start Last Admin Trade Name Freq PRN Reason Stop Dose Admin Acetaminophen 650 mg 03/19/19 00:57 03/19/19 09:16 Tylenol [place] 650 mg Q4H PRN Administration Headache/Fever/Mild Pain (1-3) Albuterol/Ipratropium 3 ml 03/19/19 02:30 03/27/19 18:47 Duoneb IPPB 3 ml [id number] ALIRIO Administration Aspirin 81 mg 03/19/19 09:00 03/27/19 08:37 Aspirin Chewable PO 81 mg DAILY ALIRIO Administration Atorvastatin Calcium 40 mg 03/19/19 21:00 03/27/19 20:51 Lipitor PO 40 mg HS ALIRIO Administration Folic Acid 1 mg 03/21/19 09:00 03/27/19 08:37 Folvite PO 1 mg DAILY ALIRIO Administration Furosemide 40 mg 03/23/19 06:00 03/27/19 05:14 Lasix SLOW IVP 40 mg 0600 ALIRIO Administration Fentanyl Citrate 2,000 mcg/ 100 mls @ 0 mls/hr 03/19/19 00:17 03/20/19 05:32 Sodium Chloride IV 04/18/19 00:17 100 mls INF ALIRIO Administration Protocol Per Protocol Piperacillin Sod/Tazobactam 100 mls @ 200 mls/hr 03/19/19 02:00 03/27/19 21: 12 Sod 3.375 gm/ Sodium Chloride IVPB 100 mls 0200,0800,1400,2000 ALIRIO Administration Dexmedetomidine HCl 200 mcg/ 50 mls @ 0 mls/hr 03/24/19 12:15 03/27/19 16:29 Sodium Chloride IVPB 50 mls INF ALIRIO Administration Protocol Titrate Insulin Human Lispro 0 units 03/21/19 09:34 03/27/19 18:27 Humalog SC 4 unit .MODERATE SLIDING SC PRN Administration Moderate Correctional Scale Insulin Human Lispro 0 units 03/23/19 13:21 03/26/19 22:08 Humalog SC 4 unit .MODERATE SLIDING SC PRN Administration Moderate Correctional Scale Lorazepam 2 mg 03/19/19 02:19 03/26/19 16:45 Ativan SLOW IVP 04/18/19 02:19 2 mg Q1H PRN Administration Breakthrough agitation Morphine Sulfate 2 mg 03/19/19 02:19 03/27/19 00:14 Morphine SLOW IVP 04/18/19 02:19 2 mg Q1H PRN Administration BREAKTHROUGH PAIN/Agitation Pantoprazole Sodium 40 mg 03/20/19 09:00 03/27/19 08:37 Protonix IVP 40 mg DAILY ALIRIO Administration Polyethylene Glycol 17 gm 03/20/19 21:00 03/27/19 20:51 Miralax PO 17 gm BID ALIRIO Administration Propofol 1,000 mg 03/19/19 02:19 03/27/19 11:29 Diprivan IV 04/18/19 02:19 1,000 mg INF PRN Administration TO ACHIEVE GOAL RASS Protocol Sodium Chloride 10 ml 03/19/19 09:00 03/27/19 20:51 Flush - Normal Saline IVF 10 ml Q12HR ALIRIO Administration Sodium Chloride 10 ml 03/20/19 07:44 03/27/19 08:38 Normal Saline Pf FS 10 ml PRN PRN Administration RECONSTITUTION Sterile Water 2 ml 03/19/19 01:49 03/22/19 06:53 Bacteriostatic Water FS 2 ml PRN PRN Administration RECONSTITUTION - Exam General Appearance: NAD, awake alert General - other findings: On Vent Heart: RRR, no gallops, no rubs, normal peripheral pulses Respiratory: no wheezes, no tachypnea, rales, rhonchi Respiratory - other findings: on Vent Gastrointestinal: non-tender, non-distended, normal bowel sounds, no guarding, no rigidity Extremities: no cyanosis, no clubbing Neurological: no new deficit Musculoskeletal: generalized weakness Musculoskeletal - other findings: Neuro/Psych - limited due to current mentation Hosp A/P - Plan DVT proph w/SCDs Severe Sepsis with Acute hypoxic/hypercapneic respiratory failure due to multifocal pneumonia ?gram negatives (POA) Thrombocytopenia Leukopenia - improving Hypokalemia/Hyponatremia DM2 Physical deconditioning h/o Aflutter s/p ablation PLAN: Cont Zosyn on Mech Ventilation Replace Potassium - recheck later today Cont other meds
[2019-03-28] MEDS: HumaLOG 300 UNITS/3 ML VIAL SC PRN (00:19)
--- NOTE | 2019-03-28 01:45 | CON ---
DATE OF CONSULTATION: HISTORY OF PRESENT ILLNESS: He is a 68-year-old male, admitted by hospitalist on 03/19/2019 after being seen in the emergency room on 03/18/2019. He was seen by Dr. Conrad. The patient presented with hypoxic respiratory failure, lives at [facility], having hypoxia problems for a week. Sats were in the 70s and 90s, observed in the emergency department. Plan to transfer to the [place]. However, patient fell in the emergency room department, hit his head with scalp laceration and CT scan of the head and C-spine obtained without acute findings. Laceration repaired, x-ray revealed pneumonia and he was admitted to the hospital. Dr. Conrad saw him in consultation. He has been managed with a ventilator and unable to wean him. I have been asked to see him regarding tracheostomy and PEG tube. I have talked to the patient's brother and sister and plan is for to perform tracheostomy and PEG tube tomorrow. Abdominal ultrasound 03/22/2019 reveals cholelithiasis. Echocardiogram 03/22/2019, EF 50% to 55%. Normal RV size and function, mild mitral regurgitation, mild tricuspid regurgitation. The patient was seen by Hematology, Anastasia Lindquist for thrombocytopenia. PAST MEDICAL HISTORY: From the chart lists is COPD, hyperlipidemia, coronary artery disease, Aflutter, diabetes, chronic thrombocytopenia. PAST SURGICAL HISTORY: 1. Colon polyp removal. 2. Partial right foot amputation. 3. Cardiac ablation. HOME MEDICATIONS: 1. Folic acid. 2. B12. 3. Metformin. ALLERGIES: NONE. PHYSICAL EXAMINATION: VITAL SIGNS: Height 5 foot 10, 201 pounds, 52, 145/54. LUNGS: Clear to auscultation. Diminished breath sounds. No wheezing. CARDIAC: Regular rate and rhythm. ABDOMEN: Soft. Midline scar, upper abdomen to lower abdomen. LABORATORY DATA: White count 7, hemoglobin 10. Potassium 2.9. Sodium 144, potassium was 3.2 after replacement, BUN 29, creatinine 1.4. ASSESSMENT/PLAN: Respiratory failure. We will plan tracheostomy and percutaneous endoscopic gastrostomy tube tomorrow. I have talked to the patient's family and they have consented. Job ID: [id number]
[2019-03-28] MEDS: Piperacillin/Tazobactam 3.375 GM in Sodium Chloride 0.9% 100 ML IVPB SCH ×2 (02:37→09:07)
[2019-03-28] MEDS: Propofol 1,000 MG/100 ML VIAL IV PRN ×2 (03:33→13:13)
[2019-03-28 04:17] LABS: Eosinophils 3 % (0-10); Hemoglobin 9.9 g/dL (14.0-18.0); Lymphocytes 22 % (21-51); MDiff Complete? YES; Mean Corpuscular HGB CONC 31.1 g/dL (32.0-36.0); Mean Corpuscular Volume 96.4 fL (78.0-98.0); Mean Platelet Volume 8.9 fL (7.4-10.4); Monocytes 13 % (0-10); Neutrophil 62 % (42-75); Platelet Count 77 thou/uL (130-400); Platelet Morphology Comment Appears Decreased; RBC Distribution Width 12.5 % (11.5-14.5); Red Blood Cell (RBC) Count 3.31 mill/uL (4.70-6.10); White Blood Cell (WBC) Count 6.1 thou/uL (4.8-10.8)
[2019-03-28 04:43] LABS: Anion Gap 12 mmol/L (10-20); BUN (Urea Nitrogen) 31 mg/dL (8.4-25.7); Calc. Creatinine Clearance 101 mL/min (70-130); Calcium 9.6 mg/dL (7.8-10.44); Carbon Dioxide 32 mmol/L (23-31); Chloride 107 mmol/L (98-107); Estimated GFR-MDRD 81; Glucose 182 mg/dL (80-115); Potassium 3.7 mmol/L (3.5-5.1); Sodium 147 mmol/L (136-145)
[2019-03-28] MEDS: Furosemide 40 MG/4 ML VIAL SLOW IVP SCH (05:02)
[2019-03-28 07:03] LABS: Actual Bicarbonate (HCO3a) 28.5 mEq/L (22-28); Base Excess (BEa) 5.5 mEq/L (-2.0 to +3.0); CO2 Tension 35.6 mmHg (35.0-45.0); Calcium, Ionized 1.19 mmol/L (1.12-1.30); Carboxyhemoglobin (COHb) 1.1 gm% (0.0-3.0); Hemoglobin (Hb) 10.3 g/dL (14.0-18.0); Potassium - ABG Lab 3.14 mmol/L (3.70-5.30); pH, Arterial 7.52 (7.35-7.45)
--- NOTE | 2019-03-28 07:12 | PDOC.HOSPP ---
- Subjective Encounter Date: 03/28/19 Encounter Time: 06:30 non-verbal Subjective: Patient seen and examined for Sepsis/Resp failure. On Vent. No overnight events - Objective Vital Signs & Weight: Vital Signs (12 hours) Temp Pulse Resp BP Pulse Ox 03/28/19 06:42 54 L 131/61 03/28/19 06:40 53 L 10 L 98 03/28/19 06:00 10 L 03/28/19 04:00 98.5 F 10 L 03/28/19 02:06 54 L 112/58 L 03/28/19 02:00 10 L 03/28/19 00:00 99.3 F 15 03/27/19 22:13 71 130/69 03/27/19 22:00 19 03/27/19 20:00 98.8 F 10 L 97 Weight Admit Weight 213 lb 6.519 oz Weight 204 lb 9.423 oz Most Recent Monitor Data Heart Rate from ECG 56 NIBP 131/61 NIBP BP-Mean 84 Respiration from ECG 20 SpO2 98 I&O: 03/27/19 03/28/19 03/29/19 06:59 06:59 06:59 Intake Total 2863.4 2146.6 Output Total 3055 2353 Balance -191.6 -206.4 Result Diagrams: 03/28/19 03:40 03/28/19 03:40 Additional Labs: Accuchecks 03/28/19 03/28/19 03/27/19 06:12 00:20 18:27 POC Glucose 178 H 205 H 237 H 03/27/19 13:42 POC Glucose 197 H Radiology Reviewed by me: Yes (CXR - no new changes) EKG Reviewed by me: Yes (Tele SR) Hospitalist ROS - Review of Systems ROS unobtainable: due to endotracheal tube - Medication Medications: Active Medications Generic Name Dose Route Start Last Admin Trade Name Freq PRN Reason Stop Dose Admin Acetaminophen 650 mg 03/19/19 00:57 03/19/19 09:16 Tylenol [place] 650 mg Q4H PRN Administration Headache/Fever/Mild Pain (1-3) Albuterol/Ipratropium 3 ml 03/19/19 02:30 03/28/19 06:40 Duoneb IPPB 3 ml [id number] ALIRIO Administration Aspirin 81 mg 03/19/19 09:00 03/27/19 08:37 Aspirin Chewable PO 81 mg DAILY ALIRIO Administration Atorvastatin Calcium 40 mg 03/19/19 21:00 03/27/19 20:51 Lipitor PO 40 mg HS ALIRIO Administration Folic Acid 1 mg 03/21/19 09:00 03/27/19 08:37 Folvite PO 1 mg DAILY ALIRIO Administration Furosemide 40 mg 03/23/19 06:00 03/28/19 05:02 Lasix SLOW IVP 40 mg 0600 ALIRIO Administration Fentanyl Citrate 2,000 mcg/ 100 mls @ 0 mls/hr 03/19/19 00:17 03/20/19 05:32 Sodium Chloride IV 04/18/19 00:17 100 mls INF ALIRIO Administration Protocol Per Protocol Piperacillin Sod/Tazobactam 100 mls @ 200 mls/hr 03/19/19 02:00 03/28/19 02: 37 Sod 3.375 gm/ Sodium Chloride IVPB 100 mls 0200,0800,1400,2000 ALIRIO Administration Dexmedetomidine HCl 200 mcg/ 50 mls @ 0 mls/hr 03/24/19 12:15 03/28/19 05:02 Sodium Chloride IVPB 50 mls INF ALIRIO Administration Protocol Titrate Insulin Human Lispro 0 units 03/21/19 09:34 03/28/19 00:19 Humalog SC 4 unit .MODERATE SLIDING SC PRN Administration Moderate Correctional Scale Insulin Human Lispro 0 units 03/23/19 13:21 03/26/19 22:08 Humalog SC 4 unit .MODERATE SLIDING SC PRN Administration Moderate Correctional Scale Lorazepam 2 mg 03/19/19 02:19 03/26/19 16:45 Ativan SLOW IVP 04/18/19 02:19 2 mg Q1H PRN Administration Breakthrough agitation Morphine Sulfate 2 mg 03/19/19 02:19 03/27/19 00:14 Morphine SLOW IVP 04/18/19 02:19 2 mg Q1H PRN Administration BREAKTHROUGH PAIN/Agitation Pantoprazole Sodium 40 mg 03/20/19 09:00 03/27/19 08:37 Protonix IVP 40 mg DAILY ALIRIO Administration Polyethylene Glycol 17 gm 03/20/19 21:00 03/27/19 20:51 Miralax PO 17 gm BID ALIRIO Administration Propofol 1,000 mg 03/19/19 02:19 03/28/19 03:33 Diprivan IV 04/18/19 02:19 1,000 mg INF PRN Administration TO ACHIEVE GOAL RASS Protocol Sodium Chloride 10 ml 03/19/19 09:00 03/27/19 20:51 Flush - Normal Saline IVF 10 ml Q12HR ALIRIO Administration Sodium Chloride 10 ml 03/19/19 02:20 03/28/19 05:02 Flush - Normal Saline IVF 10 ml PRN PRN Administration Saline Flush Sodium Chloride 10 ml 03/20/19 07:44 03/27/19 08:38 Normal Saline Pf FS 10 ml PRN PRN Administration RECONSTITUTION Sterile Water 2 ml 03/19/19 01:49 03/22/19 06:53 Bacteriostatic Water FS 2 ml PRN PRN Administration RECONSTITUTION - Exam General Appearance: NAD General - other findings: on Vent Heart: RRR, no gallops Respiratory: no wheezes, rales, rhonchi Gastrointestinal: soft, non-distended, normal bowel sounds Extremities: no cyanosis, no clubbing Hosp A/P - Plan DVT proph w/SCDs Severe Sepsis with Acute hypoxic/hypercapneic respiratory failure due to multifocal pneumonia ?gram negatives Gen weakness with fall Thrombocytopenia Leukopenia - improving Hypokalemia/Hyponatremia DM2 Physical deconditioning h/o Aflutter s/p ablation PLAN: Cont Zosyn Trach/PEG today on Mech Ventilation AM labs/ABGs/CXR Cont other meds
[2019-03-28] MEDS: Folic Acid 1 MG TAB PO SCH (09:07)
[2019-03-28] MEDS: Aspirin Chewable 81 MG TAB PO SCH (09:07)
[2019-03-28] MEDS: Pantoprazole 40 MG VIAL IVP SCH (09:07)
[2019-03-28] MEDS: Saccharomyces boulardii 250 MG CAP PER TUBE SCH (09:08)
[2019-03-28] MEDS: Polyethylene Glycol 3350 17 GM Packet PO SCH ×2 (09:08→21:20)
--- NOTE | 2019-03-28 10:10 | RAD ---
PORTABLE CHEST: Date: 03/28/2019 PROVIDED CLINICAL HISTORY: Respiratory insufficiency. FINDINGS: Comparison with 03/27/2019. Significant interval change with respect to the prior examination is not apparent. IMPRESSION: As above. POS: OFF
[2019-03-28] MEDS ORDERED: Vecuronium 10 MG VIAL ONE (10:53)
--- NOTE | 2019-03-28 10:58 | PRG ---
DATE OF SERVICE: 03/28/2019 SUBJECTIVE: Kojo Maradiaga is on schedule for tracheostomy and PEG placement today. His respiratory rate is per mechanical ventilation. OBJECTIVE: VITAL SIGNS: Blood pressure 104/50, heart rates in the 40s to 50s. LUNGS: Clear. HEART: Regular rhythm. ABDOMEN: Soft. EXTREMITIES: Unchanged. LABORATORY DATA: White count 6.1, hemoglobin 9.9, and platelets 77,000. Sodium 147, potassium 3.7, chloride 107, bicarb 32, BUN 31, creatinine 0.93, and glucose 182. PH 7.5, pCO2 35, pO2 of 81. IMPRESSION: 1. Respiratory failure associated with pneumonia on top of severe deconditioning secondary to transmetatarsal amputation of his right lower extremity. 2. half-way resident neither in the wheelchair or bed per the family. Once the tracheostomy and PEG are in place, he can be evaluated for long-term acute care next week. Job ID: [id number]
[2019-03-28] MEDS: Lorazepam 2 MG/ML VIAL SLOW IVP PRN ×2 (13:09→23:19)
[2019-03-28] MEDS ORDERED: Lidocaine 1% w/Epinephrine 1:100K 20 ML VIAL ONE (15:29)
[2019-03-28] MEDS ORDERED: Bupivacaine PF 0.5% 30 ML VIAL ONE (15:29)
[2019-03-28] MEDS ORDERED: Fentanyl 100 MCG/2 ML VIAL ONE (16:50)
[2019-03-28] MEDS ORDERED: Midazolam HCl 5 mg/5 ml Vial ONE (16:50)
[2019-03-28] MEDS: Atorvastatin Calcium 40 MG TAB PO SCH (21:21)
--- NOTE | 2019-03-29 01:05 | OP ---
DATE OF PROCEDURE: 03/28/2019 PREOPERATIVE DIAGNOSES: Respiratory failure, pneumonia, ventilatory dependent, malnutrition, dysphagia. POSTOPERATIVE DIAGNOSES: Respiratory failure, pneumonia, ventilatory dependent, malnutrition, dysphagia. PROCEDURES PERFORMED: #8 Shiley low-pressure cuff tracheostomy. Percutaneous endoscopic gastrostomy tube. ANESTHESIA: General anesthesia, local 0.5% Marcaine 30 mL mixed with 1% Xylocaine with epinephrine 20 mL. DESCRIPTION OF PROCEDURE: The patient was taken to the operating room where under general anesthesia, neck and chest were prepared with ChloraPrep and draped in routine fashion. Local anesthetic was infiltrated in the skin and subcutaneous tissue about the operative site. Incision made above the manubrium transversely, carried down to skin and subcutaneous tissue, dividing the anterior jugular veins with cautery. This reflected the strap muscles laterally, identifying the trachea, dissected free, placed the strap sutures of 3-0 Prolene on either side below the cricoid. Anterior window of the tracheostomy excised over 2.5 to 3 cartilaginous rings, noted good hemostasis. Endotracheal tube withdrawn, and #8 Shiley low-pressure cuff inserted directly into the trachea and balloon inflated, connected to the ventilator. Good hemostasis noted. Wound approximated bilaterally on either side of proximal skin with 3-0 Prolene and tracheostomy appliance secured to skin with 3-0 Prolene suture. The tracheostomy retainer secured. Sterile dressings applied. Endoscope placed per os under direct visualization. Using air insufflation, passed up the esophagus and the stomach, good indentation noted, left subxiphoid and ChloraPrep used, and local anesthetic was infiltrated in the skin and subcutaneous tissue. Stab incision made. Trocar catheter introduced percutaneously, identifying the needle in the gastric lumen, grasping the wire with a snare and moving the endoscope and wire out of the mouth. The wire was connected to the feeding tube, lubricated, pulled back down into the esophagus, stomach secured to the abdominal wall with a fixation device, tailoring the catheter to length and the feeding device and sterile dressings applied. The patient tolerated the procedure well. Job ID: [id number]
[2019-03-29] MEDS: Propofol 1,000 MG/100 ML VIAL IV PRN (02:15)
[2019-03-29 05:20] LABS: Band 3 % (5-11); Eosinophils 2 % (0-10); Hemoglobin 10.8 g/dL (14.0-18.0); Lymphocytes 11 % (21-51); MDiff Complete? YES; Mean Corpuscular HGB CONC 31.9 g/dL (32.0-36.0); Mean Corpuscular Hemoglobin 30.4 pg (27.0-31.0); Mean Corpuscular Volume 95.2 fL (78.0-98.0); Mean Platelet Volume 8.3 fL (7.4-10.4); Monocytes 10 % (0-10); Neutrophil 74 % (42-75); Platelet Count 80 thou/uL (130-400); Platelet Morphology Comment Appears Decreased; RBC Distribution Width 12.5 % (11.5-14.5); RBC Morphology Normal; Red Blood Cell (RBC) Count 3.55 mill/uL (4.70-6.10); White Blood Cell (WBC) Count 8.4 thou/uL (4.8-10.8)
[2019-03-29 05:23] LABS: Anion Gap 13 mmol/L (10-20); BUN (Urea Nitrogen) 20 mg/dL (8.4-25.7); Calc. Creatinine Clearance 116 mL/min (70-130); Calcium 9.3 mg/dL (7.8-10.44); Carbon Dioxide 29 mmol/L (23-31); Chloride 108 mmol/L (98-107); Estimated GFR-MDRD Greater than 90; Glucose 177 mg/dL (80-115); Potassium 3.6 mmol/L (3.5-5.1); Sodium 146 mmol/L (136-145)
[2019-03-29] MEDS: Furosemide 40 MG/4 ML VIAL SLOW IVP SCH (05:31)
[2019-03-29] MEDS: Aspirin Chewable 81 MG TAB PO SCH (08:34)
[2019-03-29] MEDS: Folic Acid 1 MG TAB PO SCH (08:34)
[2019-03-29] MEDS: Amoxicillin/Potassium Clav 875 MG TAB PO SCH ×2 (08:34→20:16)
[2019-03-29] MEDS: Saccharomyces boulardii 250 MG CAP PER TUBE SCH (08:34)
[2019-03-29] MEDS: Pantoprazole 40 MG VIAL IVP SCH (08:35)
[2019-03-29] MEDS: Polyethylene Glycol 3350 17 GM Packet PO SCH ×2 (08:35→20:16)
[2019-03-29] MEDS: HumaLOG 300 UNITS/3 ML VIAL SC PRN ×2 (09:48→21:07)
--- NOTE | 2019-03-29 10:54 | RAD ---
PORTABLE SUPINE CHEST: HISTORY: Respiratory distress. COMPARISON: Prior day's study. FINDINGS: Heart size is enlarged. Tracheostomy tube is in place. Bibasilar pleural and parenchymal changes ar e again noted. Some of the changes in the right base appear slightly improved. IMPRESSION: Slight improvement to changes in the right lung base. POS: [facility]
--- NOTE | 2019-03-29 19:10 | PDOC.HOSPP ---
- Subjective Encounter Date: 03/29/19 Encounter Time: 15:30 non-verbal Subjective: Patient seen and examined for resp failure. s/p trach and peg. On Vent. No overnight events - Objective Vital Signs & Weight: Vital Signs (12 hours) Temp Pulse Resp 03/29/19 18:00 10 L 03/29/19 16:20 60 03/29/19 16:00 98.4 F 10 L 03/29/19 14:06 55 L 03/29/19 14:00 10 L 03/29/19 12:00 98.4 F 10 L 03/29/19 10:45 60 03/29/19 10:00 14 03/29/19 08:00 14 03/29/19 07:42 61 Weight Admit Weight 213 lb 6.519 oz Weight 200 lb 13.458 oz Most Recent Monitor Data Heart Rate from ECG 52 NIBP 96/53 NIBP BP-Mean 67 Respiration from ECG 20 SpO2 97 I&O: 03/28/19 03/29/19 03/30/19 06:59 06:59 06:59 Intake Total 2146.6 1204 421 Output Total 2353 1948 1265 Balance -206.4 -744 -844 Result Diagrams: 03/29/19 04:55 03/29/19 04:55 Additional Labs: Accuchecks 03/29/19 03/29/19 03/29/19 15:47 09:48 04:44 POC Glucose 160 H 219 H 167 H 03/28/19 21:47 POC Glucose 183 H Radiology Reviewed by me: Yes (CXR - improving) EKG Reviewed by me: Yes (Tele SR) Hospitalist ROS - Review of Systems ROS unobtainable: due to endotracheal tube - Medication Medications: Active Medications Generic Name Dose Route Start Last Admin Trade Name Freq PRN Reason Stop Dose Admin Acetaminophen 650 mg 03/19/19 00:57 03/19/19 09:16 Tylenol [place] 650 mg Q4H PRN Administration Headache/Fever/Mild Pain (1-3) Albuterol/Ipratropium 3 ml 03/19/19 02:30 03/29/19 14:05 Duoneb IPPB 3 ml [id number] ALIRIO Administration Amoxicillin/Clavulanate Potassium 875 mg 03/29/19 09:00 03/29/19 08:34 Augmentin PO 875 mg Q12HR ALIRIO Administration Aspirin 81 mg 03/19/19 09:00 03/29/19 08:34 Aspirin Chewable PO 81 mg DAILY ALIRIO Administration Atorvastatin Calcium 40 mg 03/19/19 21:00 03/28/19 21:21 Lipitor PO 40 mg HS ALIRIO Administration Folic Acid 1 mg 03/21/19 09:00 03/29/19 08:34 Folvite PO 1 mg DAILY ALIRIO Administration Furosemide 40 mg 03/23/19 06:00 03/29/19 05:31 Lasix SLOW IVP 40 mg 0600 ALIRIO Administration Dexmedetomidine HCl 200 mcg/ 50 mls @ 0 mls/hr 03/24/19 12:15 03/29/19 16:31 Sodium Chloride IVPB 50 mls INF ALIRIO Administration Protocol Titrate Insulin Human Lispro 0 units 03/21/19 09:34 03/29/19 09:48 Humalog SC 4 unit .MODERATE SLIDING SC PRN Administration Moderate Correctional Scale Insulin Human Lispro 0 units 03/23/19 13:21 03/26/19 22:08 Humalog SC 4 unit .MODERATE SLIDING SC PRN Administration Moderate Correctional Scale Pantoprazole Sodium 40 mg 03/20/19 09:00 03/29/19 08:35 Protonix IVP 40 mg DAILY ALIRIO Administration Polyethylene Glycol 17 gm 03/20/19 21:00 03/29/19 08:35 Miralax PO 17 gm BID ALIRIO Administration Potassium Chloride 20 meq 03/28/19 08:00 03/29/19 16:32 Klor-Con PO 20 meq BID-WM ALIRIO Administration Propofol 1,000 mg 03/19/19 02:19 03/29/19 02:15 Diprivan IV 04/18/19 02:19 1,000 mg INF PRN Administration TO ACHIEVE GOAL RASS Protocol Saccharomyces Boulardii 250 mg 03/28/19 09:00 03/29/19 08:34 Florastor PER TUBE 250 mg DAILY ALIRIO Administration Sodium Chloride 10 ml 03/19/19 09:00 03/29/19 08:36 Flush - Normal Saline IVF 10 ml Q12HR ALIRIO Administration Sodium Chloride 10 ml 03/19/19 02:20 03/29/19 05:31 Flush - Normal Saline IVF 10 ml PRN PRN Administration Saline Flush Sodium Chloride 10 ml 03/20/19 07:44 03/27/19 08:38 Normal Saline Pf FS 10 ml PRN PRN Administration RECONSTITUTION Sterile Water 2 ml 03/19/19 01:49 03/22/19 06:53 Bacteriostatic Water FS 2 ml PRN PRN Administration RECONSTITUTION - Exam General Appearance: NAD Heart: no gallops, no rubs Respiratory: no wheezes, no ronchi Gastrointestinal: non-distended, normal bowel sounds Gastrointestinal - other findings: PEg + Extremities: no cyanosis Musculoskeletal - other findings: Neuro/Psych - cannot assess due to sedation Hosp A/P - Plan DVT proph w/lovenox, GI proph Severe Sepsis with Acute hypoxic/hypercapneic respiratory failure due to multifocal pneumonia ?gram negatives Gen weakness with fall Thrombocytopenia Leukopenia - improving Hypokalemia/Hyponatremia DM2 Physical deconditioning h/o Aflutter s/p ablation PLAN: Cont Augmentin s/p Trach/PEG AM labs/ABGs/CXR Cont other meds
[2019-03-29] MEDS: Atorvastatin Calcium 40 MG TAB PO SCH (20:16)
[2019-03-30 04:15] LABS: Band 1 % (5-11); Eosinophils 1 % (0-10); Hemoglobin 10.6 g/dL (14.0-18.0); Lymphocytes 14 % (21-51); MDiff Complete? YES; Mean Corpuscular HGB CONC 31.3 g/dL (32.0-36.0); Mean Corpuscular Hemoglobin 30.5 pg (27.0-31.0); Mean Corpuscular Volume 97.6 fL (78.0-98.0); Mean Platelet Volume 8.7 fL (7.4-10.4); Monocytes 5 % (0-10); Neutrophil 79 % (42-75); Platelet Count 84 thou/uL (130-400); Platelet Morphology Comment Appears Decreased; RBC Distribution Width 12.7 % (11.5-14.5); Red Blood Cell (RBC) Count 3.47 mill/uL (4.70-6.10); White Blood Cell (WBC) Count 8.1 thou/uL (4.8-10.8)
[2019-03-30 04:26] LABS: Anion Gap 11 mmol/L (10-20); BUN (Urea Nitrogen) 21 mg/dL (8.4-25.7); Calc. Creatinine Clearance 122 mL/min (70-130); Calcium 9.5 mg/dL (7.8-10.44); Carbon Dioxide 27 mmol/L (23-31); Chloride 111 mmol/L (98-107); Estimated GFR-MDRD Greater than 90; Glucose 154 mg/dL (80-115); Potassium 3.4 mmol/L (3.5-5.1); Sodium 146 mmol/L (136-145)
[2019-03-30] MEDS: Furosemide 40 MG/4 ML VIAL SLOW IVP SCH ×2 (05:12→05:13)
[2019-03-30] MEDS: HumaLOG 300 UNITS/3 ML VIAL SC PRN ×4 (06:04→21:14)
--- NOTE | 2019-03-30 09:26 | RAD ---
PORTABLE CHEST: HISTORY: Respiratory distress. COMPARISON: Prior day's exam. FINDINGS: Tracheostomy tube remains in place. Heart size appears slightly enlarged. I do not see a significant degree of interval change in the parenchymal lung change. IMPRESSION: Essentially stable examination. POS: [facility]
--- NOTE | 2019-03-30 10:21 | PRG ---
DATE OF SERVICE: 03/30/2019 SUBJECTIVE: Kojo Maradiaga is status post trach and PEG, remains encephalopathic. OBJECTIVE: VITAL SIGNS: Temperature 98, pulse 76, respiratory rate 29, sats 99%, and blood pressure 120/69. CHEST: Decreased breath sounds. No wheezing. CARDIAC: Normal S1 and S2. No gallops. ABDOMEN: No masses. LABORATORY DATA: White count 8000, hemoglobin and hematocrit of 10 and 31, platelet count is low at 84. Lytes are normal. A chest x-ray taken shows trach in place, bilateral infiltrates, effusion left. IMPRESSION: Respiratory failure status post trach and PEG, encephalopathy, and pneumonia. PLAN: At this stage, we decrease the rate to 6. Continue supportive care, PT, neb treatments, antibiotics. Eventually placement. One-half hour of critical time. Job ID: [id number]
[2019-03-30] MEDS: Amoxicillin/Potassium Clav 875 MG TAB PO SCH ×2 (10:34→20:04)
[2019-03-30] MEDS: Aspirin Chewable 81 MG TAB PO SCH (10:34)
[2019-03-30] MEDS: Saccharomyces boulardii 250 MG CAP PER TUBE SCH (10:34)
[2019-03-30] MEDS: Sodium Chloride 0.9% (PF) 10 ML VIAL FS PRN (10:35)
[2019-03-30] MEDS: Pantoprazole 40 MG VIAL IVP SCH (10:35)
[2019-03-30] MEDS: Folic Acid 1 MG TAB PO SCH (10:35)
[2019-03-30] MEDS: Polyethylene Glycol 3350 17 GM Packet PO SCH ×2 (10:36→20:05)
[2019-03-30] MEDS: Atorvastatin Calcium 40 MG TAB PO SCH (20:04)
--- NOTE | 2019-03-30 22:02 | PDOC.HOSPP ---
- Subjective Encounter Date: 03/30/19 Encounter Time: 17:30 non-verbal Subjective: Patient seen and examined for resp failure. On Vent. Tolerating tube feeds. No new complaints. No overnight events - Objective Vital Signs & Weight: Vital Signs (12 hours) Temp Pulse Resp Pulse Ox 03/30/19 20:00 99.5 F 03/30/19 19:47 96 03/30/19 19:36 14 03/30/19 19:21 52 L 03/30/19 19:20 92 L 03/30/19 18:00 10 L 03/30/19 16:00 100.2 F H 22 H 03/30/19 15:53 68 03/30/19 14:00 24 H 03/30/19 13:39 64 03/30/19 12:00 99 F 19 95 03/30/19 10:31 80 Weight Admit Weight 213 lb 6.519 oz Weight 198 lb 6.656 oz Most Recent Monitor Data Heart Rate from ECG 50 NIBP 107/60 NIBP BP-Mean 75 Respiration from ECG 25 SpO2 96 I&O: 03/29/19 03/30/19 03/31/19 06:59 06:59 06:59 Intake Total 1204 1077 618 Output Total 8171 5708 7836 [facility]869 -943 -5897 Result Diagrams: 03/30/19 03:08 03/30/19 03:08 Additional Labs: Accuchecks 03/30/19 03/30/19 03/30/19 21:16 16:47 11:18 POC Glucose 230 H 269 H 238 H 03/29/19 21:09 POC Glucose 219 H EKG Reviewed by me: Yes (Tele SR) Hospitalist ROS - Review of Systems ROS unobtainable: due to endotracheal tube - Medication Medications: Active Medications Generic Name Dose Route Start Last Admin Trade Name Freq PRN Reason Stop Dose Admin Acetaminophen 650 mg 03/19/19 00:57 03/19/19 09:16 Tylenol MD 650 mg Q4H PRN Administration Headache/Fever/Mild Pain (1-3) Albuterol/Ipratropium 3 ml 03/19/19 02:30 03/30/19 19:20 Duoneb IPPB 3 ml [id number] ALIRIO Administration Amoxicillin/Clavulanate Potassium 875 mg 03/29/19 09:00 03/30/19 20:04 Augmentin PO 875 mg Q12HR ALIRIO Administration Aspirin 81 mg 03/19/19 09:00 03/30/19 10:34 Aspirin Chewable PO 81 mg DAILY ALIRIO Administration Atorvastatin Calcium 40 mg 03/19/19 21:00 03/30/19 20:04 Lipitor PO 40 mg HS ALIRIO Administration Folic Acid 1 mg 03/21/19 09:00 03/30/19 10:35 Folvite PO 1 mg DAILY ALIRIO Administration Furosemide 40 mg 03/23/19 06:00 03/30/19 05:13 Lasix SLOW IVP 40 mg 0600 ALIRIO Administration Dexmedetomidine HCl 400 mcg/ 100 mls @ 0 mls/hr 03/30/19 10:30 03/30/19 19:23 Sodium Chloride IVPB 100 mls INF ALIRIO Administration Protocol Titrate Insulin Human Lispro 0 units 03/21/19 09:34 03/30/19 21:14 Humalog SC 4 unit .MODERATE SLIDING SC PRN Administration Moderate Correctional Scale Insulin Human Lispro 0 units 03/23/19 13:21 03/26/19 22:08 Humalog SC 4 unit .MODERATE SLIDING SC PRN Administration Moderate Correctional Scale Polyethylene Glycol 17 gm 03/20/19 21:00 03/30/19 20:05 Miralax PO Not Given BID ALIRIO Potassium Chloride 20 meq 03/28/19 08:00 03/30/19 17:09 Klor-Con PO 20 meq BID-WM ALIRIO Administration Propofol 1,000 mg 03/19/19 02:19 03/29/19 02:15 Diprivan IV 04/18/19 02:19 1,000 mg INF PRN Administration TO ACHIEVE GOAL RASS Protocol Saccharomyces Boulardii 250 mg 03/28/19 09:00 03/30/19 10:34 Florastor PER TUBE 250 mg DAILY ALIRIO Administration Sodium Chloride 10 ml 03/19/19 09:00 03/30/19 20:05 Flush - Normal Saline IVF 10 ml Q12HR ALIRIO Administration Sodium Chloride 10 ml 03/19/19 02:20 03/29/19 05:31 Flush - Normal Saline IVF 10 ml PRN PRN Administration Saline Flush Sodium Chloride 10 ml 03/20/19 07:44 03/30/19 10:35 Normal Saline Pf FS 10 ml PRN PRN Administration RECONSTITUTION Sterile Water 2 ml 03/19/19 01:49 02/01/20 06:53 Bacteriostatic Water FS 2 ml PRN PRN Administration RECONSTITUTION - Exam General Appearance: NAD Neck: supple, no JVD Heart: no gallops, no rubs Respiratory: no wheezes, no rales, rhonchi Gastrointestinal: soft, no guarding, no rigidity Extremities: no cyanosis Hosp A/P - Plan PT/OT, DVT proph w/SCDs, GI proph Severe Sepsis with Acute hypoxic/hypercapneic respiratory failure due to multifocal pneumonia ?gram negatives Gen weakness with fall Thrombocytopenia Leukopenia - improving Hypokalemia/Hyponatremia DM2 Physical deconditioning h/o Aflutter s/p ablation PLAN: Add NPH Cont moderate sliding scale Cont Augmentin Cont tube feeds s/p Trach/PEG AM labs LTAC eval
[2019-03-31 04:10] LABS: Anion Gap 10 mmol/L (10-20); BUN (Urea Nitrogen) 28 mg/dL (8.4-25.7); Calc. Creatinine Clearance 106 mL/min (70-130); Calcium 9.7 mg/dL (7.8-10.44); Carbon Dioxide 31 mmol/L (23-31); Chloride 108 mmol/L (98-107); Estimated GFR-MDRD 88; Glucose 262 mg/dL (80-115); Potassium 3.4 mmol/L (3.5-5.1); Sodium 146 mmol/L (136-145)
[2019-03-31 04:13] LABS: Band 1 % (5-11); Eosinophils 1 % (0-10); Hemoglobin 10.5 g/dL (14.0-18.0); Hypochromia SLIGHT = 6-15 cells (100X) (0-5/hpf); Lymphocytes 13 % (21-51); MDiff Complete? YES; Mean Corpuscular Hemoglobin 31.6 pg (27.0-31.0); Mean Corpuscular Volume 95.8 fL (78.0-98.0); Mean Platelet Volume 9.5 fL (7.4-10.4); Monocytes 5 % (0-10); Neutrophil 80 % (42-75); Platelet Count 96 thou/uL (130-400); Platelet Morphology Comment Appears Decreased; RBC Distribution Width 12.8 % (11.5-14.5); Red Blood Cell (RBC) Count 3.31 mill/uL (4.70-6.10)
[2019-03-31] MEDS: HumaLOG 300 UNITS/3 ML VIAL SC PRN ×3 (05:01→17:17)
--- NOTE | 2019-03-31 08:08 | PRG ---
DATE OF SERVICE: 03/29/2019 SUBJECTIVE: Kojo Maradiaga is a 68-year-old gentleman, status post trach and PEG, mildly sedated. OBJECTIVE: VITAL SIGNS: Mildly sedated, saturations are 98%, respirations 20, blood pressure 109/58, afebrile. I's and O's good. CHEST: Decreased breath sounds. No wheezing. CARDIAC: Normal S1 and S2. No gallops. ABDOMEN: No masses. IMAGING STUDIES: X-ray showed bibasilar atelectatic changes, cough, and small pleural effusion. LABORATORY DATA: Otherwise 8000 WBC, H and H are unremarkable. Platelet count is low. Glucose slightly elevated. ASSESSMENT: Respiratory failure, bilateral pleural effusions, severe deconditioning. PLAN: Continue PT, supportive care. Eventually long-term placement. We will follow. One-half hour of critical time. Job ID: [id number]
--- NOTE | 2019-03-31 08:40 | RAD ---
CHEST 1 VIEW PORTABLE: Date: 03/31/2019 HISTORY: Respiratory insufficiency. FINDINGS: Tracheostomy tube in place. Bibasilar opacity changes, probably related to atelectasis and/or pneumon ia with some increased markings in the mid and upper lung zones. IMPRESSION: Overall stable exam with bibasilar opacity changes, evidence for pneumonia and/or atelectasis. Contin ue short-term follow-up. POS: [facility]
[2019-03-31] MEDS: Amoxicillin/Potassium Clav 875 MG TAB PO SCH ×2 (08:52→19:38)
[2019-03-31] MEDS: Aspirin Chewable 81 MG TAB PO SCH (08:52)
[2019-03-31] MEDS: Pantoprazole 40 MG GRANULES PACKET PO SCH (08:52)
[2019-03-31] MEDS: Saccharomyces boulardii 250 MG CAP PER TUBE SCH (08:52)
[2019-03-31] MEDS: Folic Acid 1 MG TAB PO SCH (08:52)
[2019-03-31] MEDS: Polyethylene Glycol 3350 17 GM Packet PO SCH ×2 (08:52→19:39)
[2019-03-31] MEDS ORDERED: NPH, Human Insulin Isophane 300 UNIT/3 ML VIAL SC SCH (09:00)
[2019-03-31] MEDS ORDERED: Lorazepam 2 MG/ML VIAL SLOW IVP PRN (16:56)
[2019-03-31] MEDS: Atorvastatin Calcium 40 MG TAB PO SCH (19:38)
--- NOTE | 2019-03-31 20:38 | PRG ---
DATE OF SERVICE: 03/31/2019 SUBJECTIVE: Kojo Maradiaga was on trach collar for a while today. He is still extremely weak, placed back on mechanical ventilation with a rate of 6 and pressure support this afternoon. OBJECTIVE: VITAL SIGNS: He is afebrile with heart rate in the 60s, respiratory rate in the 20s, blood pressure 123/59. LUNGS: Clear. HEART: Regular rhythm. ABDOMEN: Soft. EXTREMITIES: Without clubbing, cyanosis, or edema. LABORATORY DATA: White count 8, hemoglobin 10.5, platelets 96,000. Sodium 146, potassium 3.4, chloride 108, bicarb 31, BUN 28, creatinine 0.87. IMPRESSION: 1. Respiratory failure after pneumonia. 2. Extreme deconditioning secondary to chronically bedridden and chair-bound state. We will continue to follow. Job ID: [id number]
[2019-04-01] MEDS: HumaLOG 300 UNITS/3 ML VIAL SC PRN ×4 (04:18→22:26)
[2019-04-01 05:45] LABS: Anion Gap 12 mmol/L (10-20); BUN (Urea Nitrogen) 33 mg/dL (8.4-25.7); Band 1 % (5-11); Calc. Creatinine Clearance 112 mL/min (70-130); Calcium 10.2 mg/dL (7.8-10.44); Carbon Dioxide 29 mmol/L (23-31); Chloride 110 mmol/L (98-107); Eosinophils 3 % (0-10); Estimated GFR-MDRD Greater than 90; Glucose 292 mg/dL (80-115); Hemoglobin 10.3 g/dL (14.0-18.0); Lymphocytes 21 % (21-51); MDiff Complete? YES; Mean Corpuscular HGB CONC 32.3 g/dL (32.0-36.0); Mean Corpuscular Volume 98.8 fL (78.0-98.0); Mean Platelet Volume 8.5 fL (7.4-10.4); Monocytes 7 % (0-10); Neutrophil 68 % (42-75); Platelet Count 84 thou/uL (130-400); Platelet Morphology Comment Appears Decreased; Potassium 4.2 mmol/L (3.5-5.1); RBC Distribution Width 12.9 % (11.5-14.5); Red Blood Cell (RBC) Count 3.22 mill/uL (4.70-6.10); Sodium 147 mmol/L (136-145); White Blood Cell (WBC) Count 7.9 thou/uL (4.8-10.8)
--- NOTE | 2019-04-01 07:20 | PDOC.HOSPP ---
- Subjective Encounter Date: 03/31/19 Encounter Time: 12:00 Subjective: Patient seen and examined for resp failure[facility] No overnight events - Objective Vital Signs & Weight: Vital Signs (12 hours) Temp Pulse Resp BP Pulse Ox 04/01/19 06:00 17 04/01/19 04:00 99.0 F 17 04/01/19 03:40 95 04/01/19 02:00 20 04/01/19 00:51 56 L 04/01/19 00:00 98.2 F 12 03/31/19 22:08 58 L 130/75 03/31/19 22:07 95 03/31/19 22:00 16 03/31/19 20:00 99.3 F 14 93 L Weight Admit Weight 213 lb 6.519 oz Weight 202 lb 9.677 oz Most Recent Monitor Data Heart Rate from ECG 63 NIBP 117/58 NIBP BP-Mean 77 Respiration from ECG 26 SpO2 96 I&O: 03/31/19 04/01/19 04/02/19 06:59 06:59 06:59 Intake Total 1387 1945 Output Total 2215 1265 Balance -828 680 Result Diagrams: 04/01/19 03:09 04/01/19 03:09 Additional Labs: Accuchecks 04/01/19 03/31/19 03/31/19 04:02 20:34 17:06 POC Glucose 279 H 189 H 230 H 03/31/19 11:40 POC Glucose 258 H Radiology Reviewed by me: Yes (CXR - no new changes) EKG Reviewed by me: Yes (Tele SR) Hospitalist ROS - Review of Systems ROS unobtainable: due to mental status - Medication Medications: Active Medications Generic Name Dose Route Start Last Admin Trade Name Freq PRN Reason Stop Dose Admin Acetaminophen 650 mg 03/19/19 00:57 03/19/19 09:16 Tylenol [place] 650 mg Q4H PRN Administration Headache/Fever/Mild Pain (1-3) Albuterol/Ipratropium 3 ml 03/19/19 02:30 04/01/19 03:40 Duoneb IPPB 3 ml [id number] ALIRIO Administration Amoxicillin/Clavulanate Potassium 875 mg 03/29/19 09:00 03/31/19 19:38 Augmentin PO 875 mg Q12HR ALIRIO Administration Aspirin 81 mg 03/19/19 09:00 03/31/19 08:52 Aspirin Chewable PO 81 mg DAILY ALIRIO Administration Atorvastatin Calcium 40 mg 03/19/19 21:00 03/31/19 19:38 Lipitor PO 40 mg HS ALIRIO Administration Folic Acid 1 mg 03/21/19 09:00 03/31/19 08:52 Folvite PO 1 mg DAILY ALIRIO Administration Dexmedetomidine HCl 400 mcg/ 100 mls @ 0 mls/hr 03/30/19 10:30 03/31/19 19:45 Sodium Chloride IVPB 100 mls INF ALIRIO Administration Protocol Titrate Insulin Human Lispro 0 units 03/23/19 13:21 04/01/19 04:18 Humalog SC 6 unit .MODERATE SLIDING SC PRN Administration Moderate Correctional Scale Insulin Human NPH 10 unit 03/31/19 09:00 03/31/19 09:30 Humulin N SC 10 units DAILY ALIRIO Administration Pantoprazole Sodium 40 mg 03/31/19 09:00 03/31/19 08:52 Protonix PO 40 mg DAILY ALIRIO Administration Polyethylene Glycol 17 gm 03/20/19 21:00 03/31/19 19:39 Miralax PO Not Given BID ALIRIO Potassium Chloride 20 meq 03/28/19 08:00 03/31/19 16:56 Klor-Con PO 20 meq BID-WM ALIRIO Administration Propofol 1,000 mg 03/19/19 02:19 03/29/19 02:15 Diprivan IV 04/18/19 02:19 1,000 mg INF PRN Administration TO ACHIEVE GOAL RASS Protocol Saccharomyces Boulardii 250 mg 03/28/19 09:00 03/31/19 08:52 Florastor PER TUBE 250 mg DAILY ALIRIO Administration Sodium Chloride 10 ml 03/19/19 09:00 03/31/19 19:39 Flush - Normal Saline IVF 10 ml Q12HR ALIRIO Administration Sodium Chloride 10 ml 03/19/19 02:20 03/29/19 05:31 Flush - Normal Saline IVF 10 ml PRN PRN Administration Saline Flush Sodium Chloride 10 ml 03/20/19 07:44 03/30/19 10:35 Normal Saline Pf FS 10 ml PRN PRN Administration RECONSTITUTION Sterile Water 2 ml 03/19/19 01:49 03/22/19 06:53 Bacteriostatic Water FS 2 ml PRN PRN Administration RECONSTITUTION - Exam General Appearance: ill appearing General - other findings: on Vent Heart: RRR, no gallops Respiratory: rales, rhonchi Gastrointestinal: non-tender, no guarding, no rigidity Gastrointestinal - other findings: PEG + Hosp A/P - Plan DVT proph w/SCDs Severe Sepsis with Acute hypoxic/hypercapneic respiratory failure due to multifocal pneumonia ?gram negatives Gen weakness with fall Thrombocytopenia Leukopenia - improving Hypokalemia/Hyponatremia DM2 Physical deconditioning h/o Aflutter s/p ablation PLAN: Increase NPH Cont moderate sliding scale Cont Augmentin Cont bolus tube feeds s/p Trach/PEG LTAC eval pending No on Heaprin due to thrombocytopenia AM labs
[2019-04-01] MEDS ORDERED: NPH, Human Insulin Isophane 300 UNIT/3 ML VIAL SC SCH (07:24)
[2019-04-01] MEDS: Pantoprazole 40 MG GRANULES PACKET PO SCH (08:47)
[2019-04-01] MEDS: Saccharomyces boulardii 250 MG CAP PER TUBE SCH (08:47)
[2019-04-01] MEDS: Amoxicillin/Potassium Clav 875 MG TAB PO SCH (08:48)
[2019-04-01] MEDS: Aspirin Chewable 81 MG TAB PO SCH (08:48)
[2019-04-01] MEDS: Folic Acid 1 MG TAB PO SCH (08:48)
[2019-04-01] MEDS: Polyethylene Glycol 3350 17 GM Packet PO SCH ×2 (09:03→21:17)
[2019-04-01] MEDS: Propofol 1,000 MG/100 ML VIAL IV PRN (11:06)
--- NOTE | 2019-04-01 15:31 | PRG ---
DATE OF SERVICE: 04/01/2019 SUBJECTIVE: Mr. Maradiaga's heart rate in the 70s, respiratory rates in the 20s. He did make an hour on a trach collar today this morning. He is placed back on ventilator for tachypnea. OBJECTIVE: LUNGS: Remarkable for coarse equal breath sounds. HEART: Regular rhythm. ABDOMEN: Soft. EXTREMITIES: Without edema. LABORATORY DATA: White count 7.9, hemoglobin 10.3, and platelets 84,000. Sodium 147, potassium 4.2, chloride 110, bicarb 29, BUN 33, creatinine 0.82, and glucose 292. IMPRESSION: 1. Respiratory failure associated with pneumonia. 2. Deconditioning, leading to a trach and a percutaneous endoscopic gastrostomy. 3. Chronically bedridden or chair bound. 4. Prognosis for successful weaning from mechanical ventilation with a tracheostomy is poor at this time. 5. Other problems include electrolyte imbalance, diabetes, borderline thrombocytopenia, and history of atrial flutter status post ablation. CRITICAL CARE TIME: 30 minutes. Job ID: [id number]
[2019-04-01] MEDS: Atorvastatin Calcium 40 MG TAB PO SCH (21:17)
--- NOTE | 2019-04-01 23:24 | PDOC.HOSPP ---
- Subjective Encounter Date: 04/01/19 Encounter Time: 09:30 non-verbal Subjective: Patient seen and examined for Resp failure. On Vent. No overnight events - Objective Vital Signs & Weight: Vital Signs (12 hours) Temp Pulse Pulse Pulse Resp BP BP 04/01/19 22:04 48 L 13 04/01/19 22:00 14 04/01/19 20:00 97.6 F 16 04/01/19 19:00 50 L 18 04/01/19 18:00 13 04/01/19 17:00 18 04/01/19 15:00 98.3 F 04/01/19 14:10 72 24 H 04/01/19 13:55 71 67 116/69 134/78 04/01/19 12:00 98.3 F 24 H Pulse Ox Pulse Ox Pulse Ox 04/01/19 22:04 99 04/01/19 22:00 04/01/19 20:00 98 04/01/19 19:00 97 04/01/19 18:00 04/01/19 17:00 04/01/19 15:00 04/01/19 14:10 100 04/01/19 13:55 96 93 L 04/01/19 12:00 Weight Admit Weight 213 lb 6.519 oz Weight 202 lb 9.677 oz Most Recent Monitor Data Heart Rate from ECG 47 NIBP 110/63 NIBP BP-Mean 78 Respiration from ECG 20 SpO2 98 I&O: 03/31/19 04/01/19 04/02/19 06:59 06:59 06:59 Intake Total 1387 1945 889 Output Total 2215 1265 959 Balance -828 680 -70 Result Diagrams: 04/01/19 03:09 04/01/19 03:09 Additional Labs: Accuchecks 04/01/19 04/01/19 04/01/19 22:26 16:43 11:01 POC Glucose 216 H 211 H 237 H 04/01/19 04:02 POC Glucose 279 H EKG Reviewed by me: Yes (Tele SR) Hospitalist ROS - Review of Systems ROS unobtainable: due to mental status - Medication Medications: Active Medications Generic Name Dose Route Start Last Admin Trade Name Freq PRN Reason Stop Dose Admin Acetaminophen 650 mg 03/19/19 00:57 03/19/19 09:16 Tylenol [place] 650 mg Q4H PRN Administration Headache/Fever/Mild Pain (1-3) Albuterol/Ipratropium 3 ml 03/19/19 02:30 04/01/19 22:04 Duoneb IPPB 3 ml [id number] ALIRIO Administration Aspirin 81 mg 03/19/19 09:00 04/01/19 08:48 Aspirin Chewable PO 81 mg DAILY ALIRIO Administration Atorvastatin Calcium 40 mg 03/19/19 21:00 04/01/19 21:17 Lipitor PO 40 mg HS ALIRIO Administration Folic Acid 1 mg 03/21/19 09:00 04/01/19 08:48 Folvite PO 1 mg DAILY ALIRIO Administration Dexmedetomidine HCl 400 mcg/ 100 mls @ 0 mls/hr 03/30/19 10:30 04/01/19 17:40 Sodium Chloride IVPB 100 mls INF ALIRIO Administration Protocol Titrate Insulin Human Lispro 0 units 03/23/19 13:21 04/01/19 22:26 Humalog SC 4 unit .MODERATE SLIDING SC PRN Administration Moderate Correctional Scale Insulin Human NPH 20 unit 04/01/19 07:24 04/01/19 08:51 Humulin N SC 20 unit DAILY ALIRIO Administration Pantoprazole Sodium 40 mg 03/31/19 09:00 04/01/19 08:47 Protonix PO 40 mg DAILY ALIRIO Administration Polyethylene Glycol 17 gm 03/20/19 21:00 04/01/19 21:17 Miralax PO Not Given BID ALIRIO Potassium Chloride 20 meq 03/28/19 08:00 04/01/19 16:45 Klor-Con PO 20 meq BID-WM ALIRIO Administration Propofol 1,000 mg 03/19/19 02:19 03/29/19 02:15 Diprivan IV 04/18/19 02:19 1,000 mg INF PRN Administration TO ACHIEVE GOAL RASS Protocol Saccharomyces Boulardii 250 mg 03/28/19 09:00 04/01/19 08:47 Florastor PER TUBE 250 mg DAILY ALIRIO Administration Sodium Chloride 10 ml 03/19/19 09:00 04/01/19 21:17 Flush - Normal Saline IVF 10 ml Q12HR ALIRIO Administration Sodium Chloride 10 ml 03/19/19 02:20 03/29/19 05:31 Flush - Normal Saline IVF 10 ml PRN PRN Administration Saline Flush Sodium Chloride 10 ml 03/20/19 07:44 03/30/19 10:35 Normal Saline Pf FS 10 ml PRN PRN Administration RECONSTITUTION Sterile Water 2 ml 03/19/19 01:49 03/22/19 06:53 Bacteriostatic Water FS 2 ml PRN PRN Administration RECONSTITUTION - Exam General Appearance: NAD Heart: RRR, no gallops Respiratory: no wheezes, rhonchi Gastrointestinal: non-tender, no guarding, no rigidity Extremities: no cyanosis Hosp A/P - Plan DVT proph w/SCDs Severe Sepsis with Acute hypoxic/hypercapneic respiratory failure due to multifocal pneumonia ?gram negatives Gen weakness with fall Thrombocytopenia Leukopenia - improving Hypokalemia/Hyponatremia DM2 Physical deconditioning h/o Aflutter s/p ablation PLAN: Increase NPH to 25 units daily Cont moderate sliding scale Cont Augmentin Cont bolus tube feeds s/p Trach/PEG LTAC eval pending No on Heaprin due to thrombocytopenia DC PO Potassium
[2019-04-02 03:55] LABS: Band 2 % (5-11); Eosinophils 2 % (0-10); Hemoglobin 10.4 g/dL (14.0-18.0); Hypochromia SLIGHT = 6-15 cells (100X) (0-5/hpf); Lymphocytes 27 % (21-51); MDiff Complete? YES; Mean Corpuscular HGB CONC 33.1 g/dL (32.0-36.0); Mean Corpuscular Hemoglobin 32.5 pg (27.0-31.0); Mean Corpuscular Volume 98.1 fL (78.0-98.0); Mean Platelet Volume 8.5 fL (7.4-10.4); Monocytes 10 % (0-10); Neutrophil 59 % (42-75); Platelet Count 78 thou/uL (130-400); Platelet Morphology Comment Appears Decreased; Red Blood Cell (RBC) Count 3.21 mill/uL (4.70-6.10)
[2019-04-02 03:57] LABS: Anion Gap 11 mmol/L (10-20); BUN (Urea Nitrogen) 33 mg/dL (8.4-25.7); Calc. Creatinine Clearance 115 mL/min (70-130); Calcium 10.3 mg/dL (7.8-10.44); Carbon Dioxide 28 mmol/L (23-31); Chloride 111 mmol/L (98-107); Estimated GFR-MDRD Greater than 90; Glucose 273 mg/dL (80-115); Potassium 4.4 mmol/L (3.5-5.1); Sodium 146 mmol/L (136-145)
[2019-04-02] MEDS: HumaLOG 300 UNITS/3 ML VIAL SC PRN ×2 (04:48→20:52)
[2019-04-02] MEDS: Aspirin Chewable 81 MG TAB PO SCH (07:51)
[2019-04-02] MEDS: Saccharomyces boulardii 250 MG CAP PER TUBE SCH ×2 (07:51→20:53)
[2019-04-02] MEDS: Pantoprazole 40 MG GRANULES PACKET PO SCH (07:51)
[2019-04-02] MEDS: Polyethylene Glycol 3350 17 GM Packet PO SCH (07:51)
[2019-04-02] MEDS: Folic Acid 1 MG TAB PO SCH (07:51)
[2019-04-02] MEDS: NPH, Human Insulin Isophane 300 UNIT/3 ML VIAL SC SCH ×2 (07:57→20:51)
[2019-04-02] MEDS: Metamucil PACK PER TUBE SCH ×2 (16:05→20:53)
[2019-04-02] MEDS: Atorvastatin Calcium 40 MG TAB PO SCH (20:52)
[2019-04-03 04:32] LABS: Band 3 % (5-11); Eosinophils 4 % (0-10); Hemoglobin 9.6 g/dL (14.0-18.0); Lymphocytes 17 % (21-51); MDiff Complete? YES; Mean Corpuscular HGB CONC 31.9 g/dL (32.0-36.0); Mean Corpuscular Hemoglobin 31.4 pg (27.0-31.0); Mean Corpuscular Volume 98.5 fL (78.0-98.0); Mean Platelet Volume 8.3 fL (7.4-10.4); Monocytes 10 % (0-10); Neutrophil 66 % (42-75); Platelet Count 82 thou/uL (130-400); Platelet Morphology Comment Appears Decreased; RBC Distribution Width 13.1 % (11.5-14.5); Red Blood Cell (RBC) Count 3.06 mill/uL (4.70-6.10); White Blood Cell (WBC) Count 5.8 thou/uL (4.8-10.8)
[2019-04-03] MEDS: HumaLOG 300 UNITS/3 ML VIAL SC PRN ×3 (04:39→20:41)
[2019-04-03 04:40] LABS: Anion Gap 8 mmol/L (10-20); BUN (Urea Nitrogen) 29 mg/dL (8.4-25.7); Calc. Creatinine Clearance 115 mL/min (70-130); Calcium 9.5 mg/dL (7.8-10.44); Carbon Dioxide 31 mmol/L (23-31); Chloride 112 mmol/L (98-107); Estimated GFR-MDRD Greater than 90; Glucose 242 mg/dL (80-115); Sodium 147 mmol/L (136-145)
[2019-04-03] MEDS: Folic Acid 1 MG TAB PO SCH (08:04)
[2019-04-03] MEDS: Saccharomyces boulardii 250 MG CAP PER TUBE SCH ×2 (08:04→20:32)
[2019-04-03] MEDS: Pantoprazole 40 MG GRANULES PACKET PO SCH (08:04)
[2019-04-03] MEDS: Aspirin Chewable 81 MG TAB PO SCH (08:04)
[2019-04-03] MEDS: NPH, Human Insulin Isophane 300 UNIT/3 ML VIAL SC SCH ×2 (08:05→20:39)
[2019-04-03] MEDS: Metamucil PACK PER TUBE SCH ×2 (08:09→20:32)
--- NOTE | 2019-04-03 08:56 | PDOC.HOSPP ---
- Subjective Encounter Date: 04/02/19 Encounter Time: 09:00 Subjective: Patient seen and examined for resp failure. On trach collar. Denies any pain. No new complaints. No overnight events - Objective Vital Signs & Weight: Vital Signs (12 hours) Temp Pulse Resp Pulse Ox 04/03/19 07:17 50 L 17 99 04/03/19 07:00 98.4 F 04/03/19 06:00 11 L 04/03/19 04:00 97.9 F 10 L 04/03/19 02:48 53 L 11 L 98 04/03/19 02:00 11 L 04/03/19 00:00 98.2 F 15 97 04/02/19 22:09 68 18 95 04/02/19 22:00 24 H 04/02/19 21:00 21 H Weight Admit Weight 213 lb 6.519 oz Weight 205 lb 7.533 oz Most Recent Monitor Data Heart Rate from ECG 48 NIBP 111/63 NIBP BP-Mean 79 Respiration from ECG 17 SpO2 100 I&O: 04/02/19 04/03/19 04/04/19 06:59 06:59 06:59 Intake Total 2073 2470 300 Output Total 1309 1421 75 Balance 764 1049 225 Result Diagrams: 04/03/19 03:55 04/03/19 03:55 Additional Labs: Accuchecks 04/03/19 04/02/19 04/02/19 04:40 20:53 16:04 POC Glucose 227 H 161 H 97 04/02/19 11:57 POC Glucose 148 H EKG Reviewed by me: Yes (Tele SR) Hospitalist ROS - Review of Systems ROS unobtainable: due to endotracheal tube - Medication Medications: Active Medications Generic Name Dose Route Start Last Admin Trade Name Freq PRN Reason Stop Dose Admin Acetaminophen 650 mg 03/19/19 00:57 03/19/19 09:16 Tylenol [place] 650 mg Q4H PRN Administration Headache/Fever/Mild Pain (1-3) Albuterol/Ipratropium 3 ml 03/19/19 02:30 04/03/19 07:17 Duoneb IPPB 3 ml [id number] ALIRIO Administration Aspirin 81 mg 03/19/19 09:00 04/03/19 08:04 Aspirin Chewable PO 81 mg DAILY ALIRIO Administration Atorvastatin Calcium 40 mg 03/19/19 21:00 04/02/19 20:52 Lipitor PO 40 mg HS ALIRIO Administration Folic Acid 1 mg 03/21/19 09:00 04/03/19 08:04 Folvite PO 1 mg DAILY ALIRIO Administration Dexmedetomidine HCl 400 mcg/ 100 mls @ 0 mls/hr 03/30/19 10:30 04/03/19 02:54 Sodium Chloride IVPB 100 mls INF ALIRIO Administration Protocol Titrate Insulin Human Lispro 0 units 03/23/19 13:21 04/03/19 04:39 Humalog SC 4 unit .MODERATE SLIDING SC PRN Administration Moderate Correctional Scale Insulin Human NPH 25 unit 04/02/19 09:00 04/03/19 08:05 Humulin N SC 25 unit DAILY ALIRIO Administration Insulin Human NPH 10 unit 04/02/19 21:00 04/02/19 20:51 Humulin N SC 10 unit HS ALIRIO Administration Pantoprazole Sodium 40 mg 03/31/19 09:00 04/03/19 08:04 Protonix PO 40 mg DAILY ALIRIO Administration Propofol 1,000 mg 03/19/19 02:19 03/29/19 02:15 Diprivan IV 04/18/19 02:19 1,000 mg INF PRN Administration TO ACHIEVE GOAL RASS Protocol Psyllium Hydrophilic Mucilloid 1 pk 04/02/19 21:00 04/03/19 08:09 Metamucil PER TUBE 1 pk BID ALIRIO Administration Saccharomyces Boulardii 250 mg 04/02/19 21:00 04/03/19 08:04 Florastor PER TUBE 250 mg BID ALIRIO Administration Sodium Chloride 10 ml 03/19/19 09:00 04/03/19 08:05 Flush - Normal Saline IVF 10 ml Q12HR ALIRIO Administration Sodium Chloride 10 ml 03/19/19 02:20 03/29/19 05:31 Flush - Normal Saline IVF 10 ml PRN PRN Administration Saline Flush Sodium Chloride 10 ml 03/20/19 07:44 03/30/19 10:35 Normal Saline Pf FS 10 ml PRN PRN Administration RECONSTITUTION Sterile Water 2 ml 03/19/19 01:49 03/22/19 06:53 Bacteriostatic Water FS 2 ml PRN PRN Administration RECONSTITUTION - Exam General Appearance: NAD General - other findings: on trach collar Heart: RRR, no gallops Respiratory: no rales, rhonchi Gastrointestinal: non-tender, non-distended, normal bowel sounds Hosp A/P - Plan DVT proph w/SCDs Severe Sepsis with Acute hypoxic/hypercapneic respiratory failure due to multifocal pneumonia ?gram negatives Gen weakness with fall Thrombocytopenia Leukopenia - improving Hypokalemia/Hyponatremia DM2 Physical deconditioning h/o Aflutter s/p ablation PLAN: Cont NPH 25 units daily with moderate sliding scale Add 10 units HS Cont Augmentin Tolerating bolus tube feeds s/p Trach/PEG Heparin on hold due to thrombocytopenia LTAC eval pending
--- NOTE | 2019-04-03 09:43 | PRG ---
DATE OF SERVICE: 04/02/2019 SUBJECTIVE: Kojo Maradiaga is on trach collar today and appeared more comfortable when he has in the past. OBJECTIVE: VITAL SIGNS: Blood pressure is 147/67, heart rate 72, respiratory rate . LUNGS: Clear anteriorly. HEART: Regular rhythm. ABDOMEN: Soft. LABORATORY DATA: Intake and outputs positive 764. White count 6.0, hemoglobin 10.4, and platelets 78,000. Sodium 146, chloride 111, potassium 4.4, bicarb 28, creatinine 0.82. IMPRESSION: 1. Respiratory failure associated with severe pneumonia. 2. Extreme deconditioning. 3. Status post right lower extremity transmetatarsal amputation. 4. Status post trach and PEG. 5. Diabetes. 6. Borderline thrombocytopenia, history atrial flutter, . PLAN: Continue supportive care. We will . Job ID: [id number]
[2019-04-03] MEDS: Atorvastatin Calcium 40 MG TAB PO SCH (20:32)
--- NOTE | 2019-04-03 22:58 | PDOC.HOSPP ---
- Subjective Encounter Date: 04/03/19 Encounter Time: 11:00 Subjective: Patient seen and examined for resp failure. Intermittent confusion. No overnight events - Objective Vital Signs & Weight: Vital Signs (12 hours) Temp Pulse Resp Pulse Ox 04/03/19 22:12 48 L 15 97 04/03/19 22:00 23 H 04/03/19 20:00 94 L 04/03/19 19:12 65 22 H 96 04/03/19 19:00 98.8 F 04/03/19 16:00 98.8 F 04/03/19 15:09 75 28 H 95 04/03/19 12:00 99.3 F Weight Admit Weight 213 lb 6.519 oz Weight 205 lb 7.533 oz Most Recent Monitor Data Heart Rate from ECG 65 NIBP 130/62 NIBP BP-Mean 84 Respiration from ECG 15 SpO2 93 I&O: 04/02/19 04/03/19 04/04/19 06:59 06:59 06:59 Intake Total 2073 2470 1894.1 Output Total 1309 1421 1035 Balance 764 1049 859.1 Result Diagrams: 04/03/19 03:55 04/03/19 03:55 Additional Labs: Accuchecks 04/03/19 04/03/19 04/03/19 20:44 16:14 10:42 POC Glucose 198 H 151 H 256 H 04/03/19 04:40 POC Glucose 227 H EKG Reviewed by me: Yes (Tele SR) Hospitalist ROS - Review of Systems ROS unobtainable: due to mental status - Medication Medications: Active Medications Generic Name Dose Route Start Last Admin Trade Name Freq PRN Reason Stop Dose Admin Acetaminophen 650 mg 03/19/19 00:57 03/19/19 09:16 Tylenol [place] 650 mg Q4H PRN Administration Headache/Fever/Mild Pain (1-3) Albuterol/Ipratropium 3 ml 03/19/19 02:30 04/03/19 22:12 Duoneb IPPB 3 ml [id number] ALIRIO Administration Aspirin 81 mg 03/19/19 09:00 04/03/19 08:04 Aspirin Chewable PO 81 mg DAILY ALIRIO Administration Atorvastatin Calcium 40 mg 03/19/19 21:00 04/03/19 20:32 Lipitor PO 40 mg HS ALIRIO Administration Folic Acid 1 mg 03/21/19 09:00 04/03/19 08:04 Folvite PO 1 mg DAILY ALIRIO Administration Dexmedetomidine HCl 400 mcg/ 100 mls @ 0 mls/hr 03/30/19 10:30 04/03/19 20:33 Sodium Chloride IVPB 100 mls INF ALIRIO Administration Protocol Titrate Insulin Human Lispro 0 units 03/23/19 13:21 04/03/19 20:41 Humalog SC 2 unit .MODERATE SLIDING SC PRN Administration Moderate Correctional Scale Insulin Human NPH 25 unit 04/02/19 09:00 04/03/19 08:05 Humulin N SC 25 unit DAILY ALIRIO Administration Insulin Human NPH 10 unit 04/02/19 21:00 04/03/19 20:39 Humulin N SC 10 unit HS ALIRIO Administration Pantoprazole Sodium 40 mg 03/31/19 09:00 04/03/19 08:04 Protonix PO 40 mg DAILY ALIRIO Administration Propofol 1,000 mg 03/19/19 02:19 03/29/19 02:15 Diprivan IV 04/18/19 02:19 1,000 mg INF PRN Administration TO ACHIEVE GOAL RASS Protocol Psyllium Hydrophilic Mucilloid 1 pk 04/02/19 21:00 04/03/19 20:32 Metamucil PER TUBE 1 pk BID ALIRIO Administration Saccharomyces Boulardii 250 mg 04/02/19 21:00 04/03/19 20:32 Florastor PER TUBE 250 mg BID ALIRIO Administration Sodium Chloride 10 ml 03/19/19 09:00 04/03/19 20:38 Flush - Normal Saline IVF 10 ml Q12HR ALIRIO Administration Sodium Chloride 10 ml 03/19/19 02:20 03/29/19 05:31 Flush - Normal Saline IVF 10 ml PRN PRN Administration Saline Flush Sodium Chloride 10 ml 03/20/19 07:44 03/30/19 10:35 Normal Saline Pf FS 10 ml PRN PRN Administration RECONSTITUTION Sterile Water 2 ml 03/19/19 01:49 03/22/19 06:53 Bacteriostatic Water FS 2 ml PRN PRN Administration RECONSTITUTION - Exam General Appearance: NAD Heart: RRR, no gallops Respiratory: no wheezes, no rales, rhonchi Gastrointestinal: soft, non-tender, normal bowel sounds Extremities: no cyanosis Hosp A/P - Plan DVT proph w/SCDs Severe Sepsis with Acute hypoxic/hypercapneic respiratory failure due to multifocal pneumonia ?gram negatives Gen weakness with fall s/p Trach/PEG Thrombocytopenia Leukopenia - improving Hypokalemia/Hyponatremia DM2 Physical deconditioning h/o Aflutter s/p ablation PLAN: Cont NPH 25 units QAM and 10 units HS Cont moderate sliding scale Tube feeds changed per corrections nurse recs Cont Augmentin Tolerating tube feeds Not on Heparin due to thrombocytopenia Await LTAC eval
[2019-04-04] MEDS: HumaLOG 300 UNITS/3 ML VIAL SC PRN ×2 (04:34→10:06)
[2019-04-04 04:58] LABS: Anion Gap 12 mmol/L (10-20); BUN (Urea Nitrogen) 27 mg/dL (8.4-25.7); Calc. Creatinine Clearance 128 mL/min (70-130); Calcium 9.6 mg/dL (7.8-10.44); Carbon Dioxide 26 mmol/L (23-31); Chloride 111 mmol/L (98-107); Estimated GFR-MDRD Greater than 90; Glucose 201 mg/dL (80-115); Potassium 3.9 mmol/L (3.5-5.1); Sodium 145 mmol/L (136-145)
[2019-04-04 05:15] VITALS: BMI 29.9
[2019-04-04 06:08] LABS: Hemoglobin 10.4 g/dL (14.0-18.0); Mean Corpuscular Hemoglobin 31.4 pg (27.0-31.0); Mean Corpuscular Volume 98.1 fL (78.0-98.0); Mean Platelet Volume 8.9 fL (7.4-10.4); Platelet Count 81 thou/uL (130-400); RBC Distribution Width 13.2 % (11.5-14.5); Red Blood Cell (RBC) Count 3.31 mill/uL (4.70-6.10); White Blood Cell (WBC) Count 5.1 thou/uL (4.8-10.8)
[2019-04-04 06:09] LABS: Band 8 % (5-11); Eosinophils 2 % (0-10); Lymphocytes 36 % (21-51); MDiff Complete? YES; Neutrophil 54 % (42-75); Platelet Morphology Comment Appears Decreased
[2019-04-04] MEDS: Folic Acid 1 MG TAB PO SCH (08:28)
[2019-04-04] MEDS: Saccharomyces boulardii 250 MG CAP PER TUBE SCH ×2 (08:28→20:43)
[2019-04-04] MEDS: Aspirin Chewable 81 MG TAB PO SCH (08:28)
[2019-04-04] MEDS: Pantoprazole 40 MG GRANULES PACKET PO SCH (08:28)
[2019-04-04] MEDS: NPH, Human Insulin Isophane 300 UNIT/3 ML VIAL SC SCH ×2 (08:29→20:57)
[2019-04-04] MEDS: Metamucil PACK PER TUBE SCH ×2 (08:31→20:43)
--- NOTE | 2019-04-04 09:06 | PRG ---
DATE OF SERVICE: 04/03/2019 SUBJECTIVE: Kojo Maradiaga is up in the neuro chair. He is in no distress. He is on a trach collar. Started to look fatigued yesterday afternoon. Certainly, yesterday evening, he was placed back on overnight ventilation. OBJECTIVE: VITAL SIGNS: Heart rate in the 70s, respiratory rate in the 20s, oxygen saturations 99, blood pressure is 174/84. LUNGS: Remarkable for mild rhonchi. HEART: Regular rhythm. ABDOMEN: Soft. LABORATORY DATA: White count 5.8, hemoglobin 9.6, platelets 82,000. Sodium 147, potassium 4, chloride 112, bicarb 31, BUN 29, creatinine 0.84. IMPRESSION: 1. Respiratory failure associated with pneumonia. 2. Extreme deconditioning, basically bedridden and chair bound. He can walk, but does not walk according to family. 3. Status post tracheostomy and percutaneous endoscopic gastrostomy placement. 4. Weakness and inability to clear secretions. 5. He appears to be making progress. We will try to go a little longer off mechanical ventilation today. He is stable for transfer to long-term care if he gets approved. Job ID: [id number]
[2019-04-04] MEDS: Atorvastatin Calcium 40 MG TAB PO SCH (20:43)
--- NOTE | 2019-04-04 21:15 | PRG ---
DATE OF SERVICE: 04/04/2019 SUBJECTIVE: Mr. Maradiaga continues to do well with nocturnal ventilation and trach collar trials during the day. OBJECTIVE: VITAL SIGNS: He is afebrile, heart rate is in 80s, blood pressure 149/91, respiratory rates in the teens to low 20s. LUNGS: Distant, clear. HEART: Regular rhythm. ABDOMEN: Soft. LABORATORY DATA: White count 5.1, hemoglobin 10.4, platelets 81,000. Sodium 145, potassium 3.9, chloride 111, bicarb 26, BUN 27, creatinine 0.75. IMPRESSION: Respiratory failure, status post trach and percutaneous endoscopic gastrostomy, clinically progressing. We will continue with nocturnal ventilation. Job ID: [id number]
--- NOTE | 2019-04-04 23:23 | PDOC.HOSPP ---
- Subjective Encounter Date: 04/04/19 Encounter Time: 10:30 Subjective: Patient seen and examined for resp failure. On trach collar. No new complaints. No overnight events - Objective Vital Signs & Weight: Vital Signs (12 hours) Temp Pulse Pulse Pulse Resp BP BP 04/04/19 22:52 04/04/19 22:03 46 L 92/52 L 04/04/19 20:00 98.6 F 04/04/19 19:27 04/04/19 19:26 74 22 H 04/04/19 16:00 98.4 F 04/04/19 15:27 64 68 131/65 04/04/19 14:39 64 23 H BP Pulse Ox Pulse Ox Pulse Ox 04/04/19 22:52 95 04/04/19 22:03 04/04/19 20:00 04/04/19 19:27 94 L 04/04/19 19:26 94 L 04/04/19 16:00 04/04/19 15:27 134/65 96 96 04/04/19 14:39 91 L Weight Admit Weight 213 lb 6.519 oz Weight 208 lb 15.971 oz Most Recent Monitor Data Heart Rate from ECG 46 NIBP 82/50 NIBP BP-Mean 60 Respiration from ECG 15 SpO2 94 I&O: 04/03/19 04/04/19 04/05/19 06:59 06:59 06:59 Intake Total 2470 2404.1 917 Output Total 1421 1260 825 Balance 1049 1144.1 92 Result Diagrams: 04/04/19 04:07 04/04/19 04:07 Additional Labs: Accuchecks 04/04/19 04/04/19 20:50 04:23 POC Glucose 83 206 H EKG Reviewed by me: Yes (Tele SR) Hospitalist ROS - Review of Systems Cardiovascular: denies: chest pain, palpitations, orthopnea, paroxysmal noc. dyspnea, edema, light headedness, other Gastrointestinal: denies: nausea, vomiting, abdominal pain, diarrhea, constipation, melena, hematochezia, other - Medication Medications: Active Medications Generic Name Dose Route Start Last Admin Trade Name Freq PRN Reason Stop Dose Admin Acetaminophen 650 mg 03/19/19 00:57 03/19/19 09:16 Tylenol [place] 650 mg Q4H PRN Administration Headache/Fever/Mild Pain (1-3) Albuterol/Ipratropium 3 ml 03/19/19 02:30 04/04/19 22:52 Duoneb IPPB 3 ml [id number] ALIRIO Administration Aspirin 81 mg 03/19/19 09:00 04/04/19 08:28 Aspirin Chewable PO 81 mg DAILY ALIRIO Administration Atorvastatin Calcium 40 mg 03/19/19 21:00 04/04/19 20:43 Lipitor PO 40 mg HS ALIRIO Administration Folic Acid 1 mg 03/21/19 09:00 04/04/19 08:28 Folvite PO 1 mg DAILY ALIRIO Administration Dexmedetomidine HCl 400 mcg/ 100 mls @ 0 mls/hr 03/30/19 10:30 04/04/19 12:47 Sodium Chloride IVPB 100 mls INF ALIRIO Administration Protocol Titrate Insulin Human Lispro 0 units 03/23/19 13:21 04/04/19 10:06 Humalog SC 4 unit .MODERATE SLIDING SC PRN Administration Moderate Correctional Scale Insulin Human NPH 25 unit 04/02/19 09:00 04/04/19 08:29 Humulin N SC 25 unit DAILY ALIRIO Administration Insulin Human NPH 10 unit 04/02/19 21:00 04/04/19 20:57 Humulin N SC Not Given HS ALIRIO Pantoprazole Sodium 40 mg 03/31/19 09:00 04/04/19 08:28 Protonix PO 40 mg DAILY ALIRIO Administration Propofol 1,000 mg 03/19/19 02:19 03/29/19 02:15 Diprivan IV 04/18/19 02:19 1,000 mg INF PRN Administration TO ACHIEVE GOAL RASS Protocol Psyllium Hydrophilic Mucilloid 1 pk 04/02/19 21:00 04/04/19 20:43 Metamucil PER TUBE 1 pk BID ALIRIO Administration Saccharomyces Boulardii 250 mg 04/02/19 21:00 04/04/19 20:43 Florastor PER TUBE 250 mg BID ALIRIO Administration Sodium Chloride 10 ml 03/19/19 09:00 04/04/19 20:43 Flush - Normal Saline IVF 10 ml Q12HR ALIRIO Administration Sodium Chloride 10 ml 03/19/19 02:20 03/29/19 05:31 Flush - Normal Saline IVF 10 ml PRN PRN Administration Saline Flush Sodium Chloride 10 ml 03/20/19 07:44 03/30/19 10:35 Normal Saline Pf FS 10 ml PRN PRN Administration RECONSTITUTION Sterile Water 2 ml 03/19/19 01:49 03/22/19 06:53 Bacteriostatic Water FS 2 ml PRN PRN Administration RECONSTITUTION - Exam General Appearance: NAD Neck: supple, no JVD Heart: no murmur, no rubs Respiratory: no wheezes, no ronchi Gastrointestinal: non-tender, non-distended, normal bowel sounds Extremities: no clubbing Hosp A/P - Plan DVT proph w/SCDs Severe Sepsis with Acute hypoxic/hypercapneic respiratory failure due to multifocal pneumonia ?gram negatives Gen weakness with fall s/p Trach/PEG Thrombocytopenia Leukopenia - improving Hypokalemia/Hyponatremia DM2 Physical deconditioning h/o Aflutter s/p ablation PLAN: Cont NPH with moderate sliding scale Cont tube feeds Cont other meds Not on Heparin due to thrombocytopenia Await LTAC placement
[2019-04-05] MEDS: HumaLOG 300 UNITS/3 ML VIAL SC PRN (05:59)
[2019-04-05 07:55] LABS: Anion Gap 10 mmol/L (10-20); BUN (Urea Nitrogen) 23 mg/dL (8.4-25.7); Calc. Creatinine Clearance 134 mL/min (70-130); Calcium 9.5 mg/dL (7.8-10.44); Carbon Dioxide 30 mmol/L (23-31); Chloride 114 mmol/L (98-107); Estimated GFR-MDRD Greater than 90; Glucose 212 mg/dL (80-115); Potassium 3.7 mmol/L (3.5-5.1); Sodium 150 mmol/L (136-145)
[2019-04-05 08:02] LABS: Band 2 % (5-11); Eosinophils 4 % (0-10); Hemoglobin 10.1 g/dL (14.0-18.0); Lymphocytes 22 % (21-51); MDiff Complete? YES; Mean Corpuscular HGB CONC 32.7 g/dL (32.0-36.0); Mean Corpuscular Hemoglobin 31.8 pg (27.0-31.0); Mean Corpuscular Volume 97.2 fL (78.0-98.0); Mean Platelet Volume 8.8 fL (7.4-10.4); Monocytes 4 % (0-10); Neutrophil 68 % (42-75); Platelet Count 81 thou/uL (130-400); Platelet Morphology Comment Appears Decreased; RBC Distribution Width 13.6 % (11.5-14.5); Red Blood Cell (RBC) Count 3.17 mill/uL (4.70-6.10); White Blood Cell (WBC) Count 5.5 thou/uL (4.8-10.8)
[2019-04-05] MEDS: Saccharomyces boulardii 250 MG CAP PER TUBE SCH (09:51)
[2019-04-05] MEDS: Pantoprazole 40 MG GRANULES PACKET PO SCH (09:51)
[2019-04-05] MEDS: Folic Acid 1 MG TAB PO SCH (09:51)
[2019-04-05] MEDS: Metamucil PACK PER TUBE SCH (09:51)
[2019-04-05] MEDS: Aspirin Chewable 81 MG TAB PO SCH (09:51)
[2019-04-05] MEDS: NPH, Human Insulin Isophane 300 UNIT/3 ML VIAL SC SCH (10:07)
[2019-04-05 11:52] VITALS: BP 127/58
--- NOTE | 2019-04-05 17:00 | EKG ---
Test Reason : Blood Pressure : / mmHG Vent. Rate : 069 BPM Atrial Rate : 055 BPM P-R Int : 000 ms QRS Dur : 118 ms QT Int : 410 ms P-R-T Axes : 000 -25 026 degrees QTc Int : 439 ms Accelerated Junctional rhythm Left ventricular hypertrophy with QRS widening Cannot rule out Septal infarct , age undetermined Abnormal ECG Confirmed by RONNIE RODRÍGUEZ ([id number]), editorial clerk GINA MALHOTRA ([id number]) on 04/05/2019 5:00:05 PM Referred By: Confirmed By:RONNIE RODRÍGUEZ
--- NOTE | 2019-04-05 17:58 | PRG ---
DATE OF SERVICE: 04/05/2019 SUBJECTIVE: Kojo Maradiaga is clinically unchanged. He is doing well on nocturnal ventilation. OBJECTIVE: VITAL SIGNS: Blood pressure 131/84, heart rate 76, respiratory rate is 19. LUNGS: Clear. HEART: Regular rhythm. ABDOMEN: Soft. EXTREMITIES: Without asymmetry. LABORATORY DATA: White count 5.5, hemoglobin 10.1, platelets 81,000. Electrolytes: Sodium 150, potassium 3.7, chloride 114, bicarb 30, BUN 23, creatinine 0.7. IMPRESSION: 1. Respiratory failure after a bad pneumonia. 2. Weakness and deconditioning. 3. Mild hyperosmolar state, simply needs more free water. 4. Status post tracheostomy and PEG. 5. Preexisting deconditioning prior to admission, living in a residential and basically wheelchair bound. He is stable to go to a long-term acute care bed when a bed becomes available. Job ID: [id number]
[2019-04-05] MEDS ORDERED: Dextrose 50 % In Water 50 ML SYRINGE ONE (18:16)
[2019-04-05 18:29] VITALS: TEMP 98.2
== END 2019-04-05 21:00 | DRG 4 ==
LOC: ERS 09:34 → ERHOLD 23:38 → CCU 03-19 02:24
PROVIDERS: ADMIT Internal Medicine; ATTEND Internal Medicine
PROC: 5A1955Z Respiratory Ventilation, Greater than 96 Consecutive Hours (ICD-10-PCS; 2019-03-18)
PROC: 0BH17EZ Insertion of Endotracheal Airway into Trachea, Via Natural or Artificial Opening (ICD-10-PCS; 2019-03-18)
PROC: 0B110F4 Bypass Trachea to Cutaneous with Tracheostomy Device, Open Approach (ICD-10-PCS; principal; 2019-03-28)
PROC: 0DH63UZ Insertion of Feeding Device into Stomach, Percutaneous Approach (ICD-10-PCS; 2019-03-28)
DX: A41.50 Gram-negative sepsis, unspecified (principal); J96.01 Acute respiratory failure with hypoxia; J15.6 Pneumonia due to other Gram-negative bacteria; J96.02 Acute respiratory failure with hypercapnia; J98.11 Atelectasis; D61.818 Other pancytopenia; E87.1 Hypo-osmolality and hyponatremia; J90 Pleural effusion, not elsewhere classified; E87.0 Hyperosmolality and hypernatremia; J44.0 Chronic obstructive pulmonary disease with (acute) lower respiratory infection; G93.49 Other encephalopathy; R65.20 Severe sepsis without septic shock; E11.65 Type 2 diabetes mellitus with hyperglycemia; I49.9 Cardiac arrhythmia, unspecified; I25.10 Atherosclerotic heart disease of native coronary artery without angina pectoris; F32.9 Major depressive disorder, single episode, unspecified; E87.6 Hypokalemia; Z89.431 Acquired absence of right foot; Z79.899 Other long term (current) drug therapy; Z79.84 Long term (current) use of oral hypoglycemic drugs; Z99.3 Dependence on wheelchair; Z86.010 Personal history of colon polyps; Z74.01 Bed confinement status
CPT/HCPCS: 12011; 31500; 36415; 36416; 51702; 70450; 71045; 71275; 72125; 76705; 80048; 80053; 81003; 82607; 82746; 82805; 83605; 83735; 83880; 84100; 84484; 85007; 85025; 85027; 85610; 88184; 93005; 93010; 93306; 93880; 94002; 94003; 94640; 94760; 96361; 96365; 96367; C9113; J0456; J0696; J1815; J1940; J2060; J2250; J2270; J2543; J2704; J2930; J3010; J3370; J3480; J3490; J7050; J7620; L0120; Q9967; S0020